=== PATIENT | female | born 1940 | race Caucasian/White ===

== ENCOUNTER 2017-12-23 08:54 | Outpatient (CLI) | payer MEDICARE, BC ==
[2017-12-23] MEDS ORDERED: Iopamidol 370 76% 100 ML VIAL ONE (12:56)
--- NOTE | 2017-12-23 13:16 | CT ---
CT OF ABDOMEN AND PELVIS PERFORMED WITH AND WITHOUT CONTRAST ENHANCEMENT: Date: 12/23/17 HISTORY: Colon cancer with colon resection. Being evaluated for microhematuria. COMPARISON: PET scan study of 01/03/12. FINDINGS: The lung bases are clear of any infiltrative process. The liver and spleen are normal in size and appearance. No evidence of any mass. Pancreas region and gallbladder appear unremarkable. Right and left adrenal glands are normal. Left kidney is normal in appearance. There has been develop ment of marked right-sided hydronephrosis. There is cortical thinning, particularly the anterior angelica ex of the right kidney associated with this, with large renal calculi, one within the renal pelvis me asuring in the 10-11 mm range and a second area within the mid pole of the right kidney which measure s approximately 12.0 mm in diameter. There is question of a filling defect associated with the dilate d konstantin of the mid pole calculus. I suspect that this is just related to incomplete mixing of the con trast with unopacified urine causing this appearance, less likely a mass, although the possibility is not totally excluded. The ureter itself is nondilated. There is no significant periaortic or mesente yanelis adenopathy. CT of pelvis was performed with and without contrast enhancement. No evidence of any significant lee ann opathy, mass, or free fluid. IMPRESSION: 1. Two large right renal calculi. There is also marked right-sided hydronephrosis present, which is probably related to the calculus located at the renal pelvis. The mid pole konstantin associated with the other large calculus shows almost a filling defect type appearance on the more delayed images. I thin k this is probably just related to uneven mixing of the contrast in urine due to the marked dilatatio n of the collecting system, although a mass is not definitely excluded. This is best appreciated on c oronal image 71. 2. Right hemicolectomy change. 3. Small hiatal hernia. POS: [facility]
== END 2017-12-23 08:55 | disposition home or self-care (01) ==
LOC: CT 08:54
PROVIDERS: ATTEND Urology
DX: N20.0 Calculus of kidney (principal); N13.39 Other hydronephrosis; K44.9 Diaphragmatic hernia without obstruction or gangrene; Z90.49 Acquired absence of other specified parts of digestive tract
CPT/HCPCS: 74178; 82565

== ENCOUNTER 2018-01-07 03:33 | Inpatient (IN) | payer MEDICARE, BC ==
[2018-01-07] MEDS ORDERED: Morphine 10 MG/ML VIAL ONE (04:15)
[2018-01-07 04:16] LABS: #Basophils 0.1 thou/uL (0.0-0.2); #Eosinphils 0.2 thou/uL (0.0-0.7); #Lymphocytes 2.4 thou/uL (1.20-3.40); #Monocytes 1.2 thou/uL (0.11-0.59); #Neutrophils 8.9 thou/uL (1.40-6.50); %Basophils 0.5 % (0.0-1.0); %Eosinophils 1.6 % (0.0-10.0); %Lymphocytes 18.7 % (21.0-51.0); %Neutrophils 70.2 % (42.0-75.0); Hemoglobin 10.5 g/dL (12.0-16.0); Mean Corpuscular HGB CONC 34.6 g/dL (32.0-36.0); Mean Corpuscular Hemoglobin 34.8 pg (27.0-31.0); Mean Platelet Volume 6.6 fL (7.4-10.4); Platelet Count 203 thou/uL (130-400); RBC Distribution Width 11.6 % (11.5-14.5); Red Blood Cell (RBC) Count 3.02 mill/uL (4.20-5.40); White Blood Cell (WBC) Count 12.7 thou/uL (4.8-10.8)
[2018-01-07 04:26] LABS: ALT (SGPT) 14 U/L (8-55); AST (SGOT) 14 U/L (5-34); Albumin 3.8 g/dL (3.4-4.8); Alkaline Phosphatase 53 U/L (40-150); Anion Gap 14 mmol/L (10-20); BUN (Urea Nitrogen) 21 mg/dL (9.8-20.1); Bilirubin, Total 0.4 mg/dL (0.2-1.2); Calc. Creatinine Clearance 0 mL/min (70-130); Calcium 9.8 mg/dL (7.8-10.44); Carbon Dioxide 25 mmol/L (23-31); Chloride 104 mmol/L (98-107); Estimated GFR-MDRD 43; Globulin 2.8 g/dL (2.4-3.5); Glucose 171 mg/dL (83-110); Lipase 49 U/L (8-78); Potassium 4.7 mmol/L (3.5-5.1); Protein, Total 6.6 g/dL (6.0-8.3); Sodium 138 mmol/L (136-145)
[2018-01-07 04:41] LABS: Bilirubin Negative (Negative); Blood, Urine Large (Negative); Clarity CLEAR (Clear); Glucose, Urine (Dipstick) Negative (Negative); Leukocyte Moderate (Negative); Nitrite Negative (Negative); Protein, Urine (Dipstick) 100 mg/dL (Neg-Trace); Specific Gravity, Urine 1.007 (1.002-1.036); Urobilinogen 0.2 mg/dL (0.2-1.0)
[2018-01-07 04:44] LABS: Bacteria/HPF None Seen HPF (None Seen); Hyaline Casts/LPF 0-3 HYALINE CAST LPF (0-3 Hyaline); Pathc Cast-AUWi Flag 0.58 (0-2.49); Squamous Epithelial None Seen HPF (0-3); WBC/HPF 21-50 HPF (0-3)
[2018-01-07] MEDS ORDERED: MEROPENEM 1 GM/50 ML 1 GM in Premix Bag 1 BAG IVPB SCH ×2 (05:15→14:00)
[2018-01-07] MEDS ORDERED: HYDROcodone/Acetaminophen 5/325 mg Tablet PO PRN ×2 (07:17→07:18)
[2018-01-07] MEDS ORDERED: Acetaminophen 325 MG TAB PO PRN (07:18)
[2018-01-07] MEDS ORDERED: Ondansetron ODT 4 MG TAB PO PRN (07:18)
[2018-01-07] MEDS ORDERED: Ondansetron HCl/PF 4 MG/2 ML Vial IVP PRN (07:18)
[2018-01-07] MEDS ORDERED: Morphine 4 MG/ML VIAL IV PRN (07:20)
[2018-01-07 07:25] VITALS: BMI 21.5
[2018-01-07] MEDS ORDERED: Sodium Chloride 0.9% 1,000 ML IV SCH (07:30)
[2018-01-07] MEDS ORDERED: Prevnar 13-Val Conj/PF 0.5 ML SYRINGE IM ONE (07:45)
[2018-01-07] MEDS ORDERED: cefTRIAXone\\ROCEPHIN 2 GM in Sodium Chloride 0.9% 100 ML IVPB SCH (08:00)
--- NOTE | 2018-01-07 09:53 | CT ---
PRELIMINARY REPORT/[facility]/EMERGENTY AFTER-HOURS PROCEDURE CT Abdomen and Pelvis Without Intravenous Contrast CLINICAL HISTORY: 77 years old, female; Abdominal pain; right flank pain. had CT done recently and found kidney stone. States pain from stone too intense tonight. Pt reports "kidney stone blocking causing kidney to . " TECHNIQUE: Axial computed tomography images of the abdomen and pelvis without intravenous contrast. Coronal refo rmatted images were created and reviewed. COMPARISON: No relevant prior studies available. FINDINGS: Lung bases: Unremarkable. No mass. No consolidation. Heart: Coronary artery calcification. ABDOMEN: Liver: Unremarkable. Gallbladder and bile ducts: Unremarkable. No calcified stones. No ductal dilation. Pancreas: Unremarkable. No ductal dilation. Spleen: Unremarkable. No splenomegaly. Adrenals: Unremarkable. No mass. Kidneys and ureters: Right hydronephrosis with a 9 x 10 x 8 mm calcified stone at the right UPJ. Bila teral calcified renal stones, right greater than left. Stomach and bowel: Prior hemicolectomy with ileocolic anastomosis in the mid transverse colon region. No generalized ileus or obstruction. PELVIS: Appendix: See above. Bladder: Unremarkable. No stones. Reproductive: Atrophic uterus and ovaries. ABDOMEN and PELVIS: Intraperitoneal space: Unremarkable. No free air. No significant fluid collection. Bones/joints: Prior T12 and L5 vertebroplasty. Spinal degenerative changes. No acute fracture. No dis location. Soft tissues: Unremarkable. Vasculature: Unremarkable. No abdominal aortic aneurysm. Lymph nodes: Unremarkable. No enlarged lymph nodes. IMPRESSION: 1. Right hydronephrosis with a 9 x 10 x 8 mm calcified stone at the right UPJ. 2. Bilateral calcified renal stones, right greater than left. Thank you for allowing us to participate in the care of your patient. Dictated and Authenticated by: Hola Aleman MD 01/07/2018 5:19 AM Central Time ([place] & [place]) FINAL REPORT CT ABDOMEN AND PELVIS NONCONTRAST: DATE: 01/07/18. TIME: Performed on an emergency basis at 0408 hours. HISTORY: Right flank pain. COMPARISON: 12/23/17. FINDINGS: Agree with the preliminary report by Dr. Aleman from [facility]. Calculus at the right rober l pelvis now measures up to 1.0 cm. Additional nonobstructing right renal calculi are similar in johanna earance to the prior exams. Lack of contrast limits evaluation for other abnormalities. Other chron ic-type findings are stable. POS: [facility]
--- NOTE | 2018-01-07 10:11 | HP ---
DATE OF SERVICE: 01/07/2018 ADMISSION DIAGNOSES: Concern for urinary tract infection and right flank pain with known stone disease. HISTORY OF PRESENT ILLNESS: The patient is a 77-year-old female who was recently seen in my office after she was having microhematuria and a workup revealed a large obstructing stone that had clearly been there chronically with loss of significant parenchyma on the right. Cystoscopy had been negative. At that time, we reviewed given she was asymptomatic and had no pain or gross hematuria, and I would not recommend treatment as the amount of parenchymal on that side was likely not worth intervention to save. We did review reasons need for intervention including infection, gross hematuria, and persistent pain at that time. More recently, she had right-sided pain and started shaking to call 911 and was taken to the ER where her pain was not bad enough to require at least except morphine, which she was offered. The on-call urologist had not evaluated her yet and did not feel comfortable letting her go, so admitted her. Since she was my patient, I saw her. She had no gross hematuria, no dysuria or concern for bladder infection, but she did feel like reviewed with the same symptoms a year ago when she got very sick with a urinary tract infection, which is why she did not stay at home as that required a week long hospital stay in the past. She had no fever, chills, nausea or vomiting. PAST MEDICAL HISTORY: Significant for high cholesterol, diabetes since , osteoporosis, anemia, depression, anxiety, chronic pain, glaucoma, hypothyroid, colon cancer undergoing resection and chemotherapy in 2010. PAST SURGICAL HISTORY: Includes tonsils and colectomy in 2010 and extended colectomy in September 2011, MediPort placement in 2011, which has been removed. ALLERGIES: SULFA, causes hives. LEVAQUIN, makes her sick. SOCIAL HISTORY: Smoked for 35 years a pack a day, but quit around 1998. She does not use drugs or drink alcohol. She is and lives at home. FAMILY HISTORY: Father at 67 of heart disease. Mother at 87 of heart disease. MEDICATIONS: Include Onglyza 5 mg, Synthroid 20 mcg, metformin 500 two at night , Crestor 10 mg, vitamin D3, Prozac 10 mg. REVIEW OF SYSTEMS: She had a colonoscopy in 2018, which revealed polyps. She gets this every 3 years. Endoscopy at the same time showed a hiatal hernia. Her mammogram last year was normal. Pap smear 2 years ago was normal. She denies any shortness of breath, chest pain, cough, occasionally she has bouts of diarrhea. She is not constipated. She had a loose and a normal bowel movement yesterday. She had a recent rash that they feel is a delayed reaction from contrast for a recent CT scan that she had and over the weekend, she saw someone and received a steroid injection as well as steroid cream, this is getting better. PHYSICAL EXAMINATION: GENERAL: She is comfortable in the bed. VITAL SIGNS: Temperature is 99.8, heart rate 85, blood pressure 161/79, satting 95% on room air. She is alert and oriented. NECK: She has no JVD. HEENT: She has no scleral icterus. She has no flushing or color of the skin, although there is the rash, lesions that are healing noted especially on the right hand. CARDIOVASCULAR: Regular rate and rhythm with no murmurs, gallops or rubs. LUNGS: Clear to auscultation bilaterally. ABDOMEN: Soft, nondistended, nontender. There is mild right CVA tenderness, but none on the left. EXTREMITIES: No lower extremity edema. LABORATORY DATA: Reveal a white count of 12.7, anemia which is stable at 10.5 and 30.5, normal platelets at 203. Creatinine 1.22, which is actually good for her as her baseline is 1.3-1.4. Urinalysis revealed 21-50 wbc's, 4-6 rbc's, no bacteria, no squamous cells, and [address] scan without contrast was reviewed personally and very similar to the one from 12/23/2017 that had without and with contrast; however, we only changed that there might be mild stranding on the right kidney in comparison to the prior, but she still has the unchanged 1.2 x 1 x 1 right UPJ stone with chronic hydro and decreased parenchyma. She also has some stone debris in the mid kidney on the right and a elyse on the left with a full bladder. We had a long discussion on stent placement and intervention with her and daughter present. We relayed in great detail to the pros and cons of doing nothing other than giving antibiotics for a 2-week course for presumed pyelonephritis as well as intervening with a stent, which commits her to definitive stone therapy versus sending out on IV antibiotics and delaying therapy as there is no definitive acute indication for a stent right now. She weighed the pros and cons of these and ultimately decided to have a stent placed today. We reviewed the risks and benefits and how there is a small chance that I would not be able to place a stent and then we would have to discuss whether she would want a percutaneous nephrostomy tube thereafter. All questions were answered and I consented her for the procedure. We will anticipate this sooner than later. LA NENA
[2018-01-07] MEDS ORDERED: Iothalamate Meglumine 60% 50 ML VIAL FS ONE (11:37)
[2018-01-07] MEDS ORDERED: Succinylcholine Chloride 20 MG/ML 10 ml SYRINGE FS ONE ×2 (11:50→14:39)
[2018-01-07] MEDS ORDERED: Fentanyl 100 MCG/2 ML VIAL ONE ×2 (11:51)
[2018-01-07] MEDS ORDERED: Ioversol 68 % 50 ML VIAL ONE (12:02)
[2018-01-07 12:45] VITALS: TEMP 98.9
--- NOTE | 2018-01-07 13:07 | RAD ---
RIGHT RETROGRADE IVP: HISTORY: Stent placement. FINDINGS: Two fluoroscopic intraoperative images from a right retrograde pyelogram demonstrate removal of a rig ht proximal ureteric calculus at LII level and placement of a right ureteral stent. There are calcul i in the projection of the right kidney. There are postop changes of vertebroplasty at T12 and L5 le vels. POS: [facility]
[2018-01-07 13:08] LABS: Bilirubin Negative (Negative); Blood, Urine Large (Negative); Glucose, Urine (Dipstick) Negative (Negative); Leukocyte Large (Negative); Nitrite Negative (Negative); Protein, Urine (Dipstick) 100 mg/dL (Neg-Trace); Urobilinogen 0.2 mg/dL (0.2-1.0)
[2018-01-07 13:22] LABS: Clarity Hazy (Clear); RBC/HPF GREATER THAN 50-TNTC HPF (0-3); Squamous Epithelial 0-3 HPF (0-3); WBC/HPF 21-50 HPF (0-3)
[2018-01-07 13:23] LABS: Bacteria/HPF Rare-Few HPF (None Seen); Hyaline Casts/LPF NONE SEEN LPF (0-3 Hyaline)
--- NOTE | 2018-01-07 14:14 | OP ---
DATE OF PROCEDURE: 01/07/2018 PREOPERATIVE DIAGNOSES: Right obstructing ureteropelvic junction stone with concern for infection. POSTOPERATIVE DIAGNOSES: Right obstructing ureteropelvic junction stone with concern for infection. PROCEDURES PERFORMED: Cystoscopy, right retrograde pyelogram, insertion of right ureteral stent 6 x 28 JJ. COMPLICATIONS: No complications. DRAINS REMAININ x 28 double J. SPECIMENS: Urine from the right renal pelvis. ESTIMATED BLOOD LOSS: No blood loss. INDICATIONS: The patient is a 77-year-old female who is followed in the office for microhematuria and noted to have a large obstructing stone on the right that was there for years prior. Given the parenchymal loss on this side and we opted to monitor only. However, overnight, she had right-sided pain, was shaking and was concerned that this was how the prior significant urinary tract infection occurred in the past, so came to the emergency room and was admitted. We discussed the pros and cons of intervention and proceeding with a stent. PROCEDURE IN DETAIL: The patient was brought into the room by Anesthesia and laid on the table in the supine position. After receiving general anesthetic, legs placed in lithotomy position and perineum were prepped and draped in sterile fashion. Using a 22-Uzbek cystoscope and 30-degree lens urethra was traversed and the bladder inspected. No lesions were noted. The right ureteral orifice was intubated with a wire and then the Pollack catheter which was advanced up to the level of the stone. It looked initially like it might have passed it, but this was tortuosity of the ureter so the wire did not pass beyond it and I had to angle the Pollack catheter such that the wire would attempt to reverse itself around the stone. We used a Glidewire, which aided in passing it, then I could not get the Pollack catheter advanced over the wire well enough given the tortuosity. So then I got a stiff wire and placed this in which then straightened out the ureter and allowed the Pollack catheter to get into the renal pelvis beyond the stone. Hydronephrotic drip was noted and 6 mL of slightly cloudy urine was extracted and sent for specimen. Knowing the patient's size and height I attempted to go with a smaller stent and originally tried to place a 26 x 6 double-J, but the proximal coil would only go right next to the stone. I was concerned that it would migrate down and the stone would still be obstructing. At that point, I removed the 26cm stent and had to use a 28cm to allow the it to get beyond the stone enough to coil into place adequately. Once this was performed, there was still significant angulation, but the proximal coil was in the renal pelvis above the level of the stone. There was a good coil visualized in the bladder with effuse noted from it. So at this point, the scope was broken apart, bladder drained and removed in its entirety. The patient tolerated the procedure well and was then awakened and transferred to PACU in stable condition. LA NENA
[2018-01-07] MEDS ORDERED: Esmolol 100 MG/10 ML VIAL ONE (14:39)
[2018-01-07] MEDS ORDERED: Lidocaine 1% PF 5 ML VIAL ONE (14:39)
[2018-01-07] MEDS ORDERED: Ondansetron HCl/PF 4 MG/2 ML Vial ONE (14:39)
[2018-01-07] MEDS ORDERED: PROPOFOL 200 MG/20 ML VIAL ONE (14:39)
[2018-01-07] MEDS ORDERED: ePHEDrine/0.9% NaCl/PF SYRINGE 50 mg/10 ml ONE (14:39)
[2018-01-07 15:53] VITALS: BP 116/62
[2018-01-07] MEDS ORDERED: Insulin Regular 300 UNITS/3 ML VIAL SC SCH ×2 (16:30→18:00)
[2018-01-07] MEDS ORDERED: Dextrose 50% Abboject 50 ML SYRINGE IVP PRN (16:37)
[2018-01-07] MEDS ORDERED: Dextrose 5% in Water 1,000 ML IV PRN (16:37)
[2018-01-07] MEDS ORDERED: metFORMIN 500 MG TAB PO SCH (16:45)
--- NOTE | 2018-01-08 10:46 | DIS ---
ADMISSION DIAGNOSES: Renal colic, obstructing right ureteropelvic junction stone, concern for infect ion. DISCHARGE DIAGNOSES: Renal colic, obstructing right ureteropelvic junction stone, concern for infect ion. Status post right ureteral stent. Please see the H&P for full details. There was concern for possible infection and pain with a known chronically obstructing stone, so she went for an urgent stent. This was placed and she was discharg ed the same day on antibiotics. She will follow up in the office to discuss definitive stone management.
--- NOTE | 2018-01-08 12:30 | PQF ---
HANSELREBEKAH JEREMY MAYES [id number] CLINICAL DOCUMENTATION CLARIFICATION FORM: POST DISCHARGE DATE: 01/08/2018 ATTN: Dr. Mayes Please exercise your independent, professional judgment in responding to the clarification form. Clinical indicators are provided on the bottom of this form for your review Please check appropriate box(s) to clarify if the following diagnosis has been ruled in or ruled out: UTI/Pyelonephritis [ ] Ruled in diagnosis [ X] Continue to treat [ X ] UTI (please specify organism) [ ] Resolved [X ] Pyelonephritis (please specify organism) [ ] Acute [ ] Chronic [ X] Other (please specify) [ ] Ruled out diagnosis [ ] Cannot rule out diagnosis [ ] Other diagnosis (please specify) [ ] Unable to determine In addition, please specify: Present on Admission (POA): [ X] Yes [ ] No [ ] Unable to determine For continuity of documentation, please document condition throughout progress notes and discharge summary. Thank You. CLINICAL INDICATORS - SIGNS / SYMPTOMS / LABS Per H&P: We relayed in great detail to the pros and cons of doing nothing other than giving antibiotics for a 2 week course for presumed pyelonephritis. Per operative note: Right obstructing ureteropelvic junction stone with concern for infection. Per microbiology urine: Right kidney aspirate: Staphylococcus species. Urine straight catheter: Enterococcus species. RISK FACTORS Per operative report: Right obstructing ureteropelvic junction stone. TREATMENTS (per medications) IV Meropenem. IV Rocephin. (This form is maintained as a part of the permanent medical record) 2014 [employer] [place]. All Rights Reserved Belle [email or web address] [phone] MTDD
[2018-01-08] MEDS ORDERED: metFORMIN 500 MG TAB PO SCH (21:00)
--- NOTE | 2018-01-11 13:15 | TCOM ---
Admission Diagnosis: renal colic, obstructing right ureteral stone Discharge Diagnosis: same, s/p stent This is a 77-year-old female who was admitted through the ER with acute pain and concern for infection with a known chronically obstructing right proximal ureteral stone. She underwent a right ureteral stent and was discharged on antibiotics. She was admitted, had the procedure and discharged on 01/07/2018. She will follow up in the office for definitive stone therapy discussions further. LA NENA
== END 2018-01-07 18:31 | disposition home or self-care (01) | DRG 690 ==
LOC: ERS 03:33 → T4-B 06:52
PROVIDERS: ADMIT Urology; ATTEND Urology
PROC: 0T768DZ Dilation of Right Ureter with Intraluminal Device, Via Natural or Artificial Opening Endoscopic (ICD-10-PCS; principal; 2018-01-07)
PROC: BT1D1ZZ Fluoroscopy of Right Kidney, Ureter and Bladder using Low Osmolar Contrast (ICD-10-PCS; 2018-01-07)
DX: N13.6 Pyonephrosis (principal); E78.00 Pure hypercholesterolemia, unspecified; E11.9 Type 2 diabetes mellitus without complications; F32.9 Major depressive disorder, single episode, unspecified; F41.9 Anxiety disorder, unspecified; G89.29 Other chronic pain; E03.9 Hypothyroidism, unspecified; M81.0 Age-related osteoporosis without current pathological fracture; Z85.038 Personal history of other malignant neoplasm of large intestine; Z92.21 Personal history of antineoplastic chemotherapy; Z88.1 Allergy status to other antibiotic agents; Z88.2 Allergy status to sulfonamides; Z79.84 Long term (current) use of oral hypoglycemic drugs; Z79.899 Other long term (current) drug therapy
CPT/HCPCS: 36415; 36416; 51701; 74176; 74420; 80053; 81003; 81015; 83690; 85025; 87040; 87070; 87077; 87086; 87186; 87205; 96361; 96365; A4353; C1758; C1769; J0696; J2001; J2185; J2270; J2405; J2704; J3010; J7050; Q9961; Q9967

== ENCOUNTER 2018-01-11 12:55 | Outpatient (CLI) | payer MEDICARE, BC ==
--- NOTE | 2018-01-11 14:49 | RAD ---
CHEST PA AND LATERAL: History: 77-year-old female for pre-operative evaluation. Comparison: 05-20-11 FINDINGS: Bilateral apical pleural thickening. Heart size is normal. Atherosclerosis of the aorta with ectasia. Status post vertebroplasty changes of one of the lower thoracic vertebral bodies. No confluent pneum onia, overt edema, or pleural effusion. IMPRESSION: No acute intrathoracic disease. Biapical pleural thickening. Atherosclerosis of the aorta. Status pos t vertebroplasty. Right ureteral stent partially visualized. POS: [facility]
== END 2018-01-11 12:56 | disposition home or self-care (01) ==
LOC: LABBT 12:55
PROVIDERS: ATTEND Urology
DX: Z01.818 Encounter for other preprocedural examination (principal); N20.2 Calculus of kidney with calculus of ureter; J92.9 Pleural plaque without asbestos; I70.0 Atherosclerosis of aorta; Z98.890 Other specified postprocedural states
CPT/HCPCS: 71046; 81001; 87086; 93005; 93010

== ENCOUNTER 2018-01-19 08:07 | Day surgery (SDC) | payer MEDICARE, BC ==
[2018-01-11 13:07] VITALS: BMI 21.4
[2018-01-19] MEDS ORDERED: Meropenem 500 MG in Sodium Chloride 0.9% 100 ML IVPB SCH (08:45)
[2018-01-19] MEDS ORDERED: Iothalamate Meglumine 60% 50 ML VIAL FS ONE (09:12)
[2018-01-19] MEDS ORDERED: Fentanyl 100 MCG/2 ML VIAL ONE ×2 (09:19→12:40)
[2018-01-19] MEDS ORDERED: Meperidine HCl/PF 25 MG/ML VIAL ONE (09:19)
[2018-01-19] MEDS ORDERED: Furosemide 20 MG/2 ML VIAL ONE (11:16)
[2018-01-19] MEDS ORDERED: ePHEDrine/0.9% NaCl/PF SYRINGE 50 mg/10 ml ONE (11:33)
[2018-01-19] MEDS ORDERED: PROPOFOL 200 MG/20 ML VIAL ONE (11:33)
[2018-01-19] MEDS ORDERED: Ondansetron HCl/PF 4 MG/2 ML Vial ONE ×2 (11:33→12:42)
[2018-01-19] MEDS ORDERED: Lidocaine 1% PF 5 ML VIAL ONE (11:33)
[2018-01-19] MEDS ORDERED: PHENYLEPHRINE-NS 100 MCG/ML 10 ML SYRINGE ONE (11:33)
--- NOTE | 2018-01-19 11:48 | OP ---
DATE OF SERVICE: 01/19/2018 PREOPERATIVE DIAGNOSIS: Right ureteropelvic junction and right renal stones POSTOPERATIVE DIAGNOSIS: Right renal stone. PROCEDURE: Cystoscopy, right ureteroscopy, right pyeloscopy, right holmium laser lithotripsy, stent exchange leaving a 7 x 26 with a string and extracorporeal shockwave lithotripsy. SURGEON: Nayely Mayes M.D. ANESTHESIA: General with laryngeal mask airway. FINDINGS: Significant narrowing at the UPJ, but the stone was actually in the renal pelvis. Attempt s at lithotripsy were made difficult by the stones mobility and visualization. After attempting this , I felt it was safer to proceed with shock wave therapy. I was also able to note there were debris stones and a smaller stone in the lower pole via pyeloscopy. SPECIMENS: None. DRAINS REMAININ x 26 double-J with a string. COMPLICATIONS: None. BLOOD LOSS: None. INDICATIONS FOR PROCEDURE: The patient is a 77-year-old female who I saw in the office for hematuria noted to have an obstructing UPJ stone with chronic dilation and loss of parenchyma on the right, wh o had been there for quite some time and we were opting to monitor; however, the patient had further pain and concern for infection and underwent an urgent stent, so we opted for definitive stone manage ment. PROCEDURE IN DETAIL: The patient was brought into the room by Anesthesia, laid on the table in supin e position. After obtaining general anesthetic her legs placed in lithotomy position with the right leg lowered and left leg elevated and she was prepped and draped in sterile fashion. Using a 22-Fren ch cystoscope, the urethra was traversed and the stent existing was grasped and brought out through t he urethral meatus. A wire was placed through this and that stent was removed and then the rigid ure teroscope was used to follow the wire up to the proximal ureter, but I was unable to pass a tortuous curve safely with the rigid, so I switched to a flexible. I was able to follow the wire with the fle xible ureteroscope all the way to the UPJ and into the renal pelvis with narrowing at the UPJ it was difficult to traverse, but once in the renal pelvis the stone was easily noted and I further examined and found more stone debris and a smaller stone in the lower pole. At this point, I went back to e renal pelvic stone and with holmium laser lithotripsy attempted to break it up. This was made diff icult by the stones mobility within the renal pelvis and when turning off the water to keep it still, it was difficult to see from the cloudy nature, so having not made significant progress at this poin t, I opted to stop holmium laser lithotripsy and proceed with extracorporal shockwave lithotripsy. Leading a wire through the flexible ureteroscope, I removed it and then was concerned that it had jadyn pped below the UPJ again, so I fed the flexible scope back up and ensured that the wire was indeed in the renal pelvis, and not in the upper calices. Before removing the flexible scope entirely and the n back feeding the cystoscope over and leaving a 7 x 26 double-J over a wire after measuring with the Pollack catheter, a good coil was visualized in the renal pelvis via fluoroscopy and a good coil was visualized in the bladder via cystoscopy with a string so the scope was broken apart, bladder draine d and removed carefully leaving the string intact and secured to the patient's mons pubis. At this p oint, she was transferred to the ESWL suite. She was laid supine and positioned such that the lithotripter could identify the stone in multiple pl anes. Then, a total of 2500 shocks at a maximum rate of 70 per minute, maximum power of 4 out of 6 w ere delivered with good fragmentation noted. The patient tolerated the procedure well and was then a wakened and transferred to PACU in stable condition.
[2018-01-19] MEDS ORDERED: Promethazine HCl 25 MG/ML VIAL ONE (12:40)
== END 2018-01-19 14:45 | disposition home or self-care (01) ==
LOC: SDC 08:07
PROVIDERS: ATTEND Urology
PROC: 0T768DZ Dilation of Right Ureter with Intraluminal Device, Via Natural or Artificial Opening Endoscopic (ICD-10-PCS; principal; 2018-01-19)
PROC: 0TF3XZZ Fragmentation in Right Kidney Pelvis, External Approach (ICD-10-PCS; 2018-01-19)
DX: N20.0 Calculus of kidney (principal); Z88.2 Allergy status to sulfonamides; Z88.8 Allergy status to other drugs, medicaments and biological substances; Z91.041 Radiographic dye allergy status; Z79.2 Long term (current) use of antibiotics; Z79.82 Long term (current) use of aspirin; Z79.899 Other long term (current) drug therapy; Z79.84 Long term (current) use of oral hypoglycemic drugs
CPT/HCPCS: 36416; 74018; 76001; 96374; C1758; J1940; J2001; J2175; J2185; J2405; J2550; J2704; J3010; J7050; Q9961

== ENCOUNTER 2018-02-15 10:47 | Outpatient (CLI) | payer MEDICARE, BC ==
--- NOTE | 2018-02-15 13:25 | RAD ---
ABDOMEN ONE VIEW: History: Renal stones. Comparison: 01-19-18 FINDINGS: Visualized bowel gas pattern is nonspecific. Right ureteral stent no longer visible. Renal outlines o bscured by bowel content. Phleboliths over the pelvis are stable. Right renal calculi not reliably demonstrated. Osseous structures are demineralized. Multilevel vertebroplasty. IMPRESSION: Interval removal of right ureteral stent. Urinary tract calculi not reliably visible. POS: [facility]
== END 2018-02-15 10:48 | disposition home or self-care (01) ==
LOC: RAD 10:47
PROVIDERS: ATTEND Urology
DX: N20.0 Calculus of kidney (principal)
CPT/HCPCS: 36415; 74018; 80048; 81001

== ENCOUNTER 2018-04-05 09:35 | Outpatient (CLI) | payer MEDICARE, BC | END 2018-04-05 09:36 | disposition home or self-care (01) | LOC: BICMAMMO 09:35 | PROVIDERS: ATTEND Obstetrics & Gynecology | DX: Z12.31 Encounter for screening mammogram for malignant neoplasm of breast (principal); Z80.3 Family history of malignant neoplasm of breast; R92.1 Mammographic calcification found on diagnostic imaging of breast | CPT/HCPCS: 77063; 77067 ==

== ENCOUNTER 2019-04-06 10:41 | Outpatient (CLI) | payer MEDICARE, BC ==
--- NOTE | 2019-04-06 12:49 | BD ---
Exam: DEXA Bone Density 04/06/19 HISTORY: Postmenopausal screening for osteoporosis. Right hip: BMD (g/cm2) T-SCORE Z-SCORE Neck: 0.530 -2.9 -0.6 Total: 0.613 -2.7 -0.7 Left hip: Neck: 0.516 -3.0 -0.8 Total: 0.603 -2.8 -0.8 Impression: Osteoporosis. POS: [facility]
--- NOTE | 2019-04-06 15:56 | MMO ---
Bilateral MAMMO Bilat Screen [facility]. CLINICAL HISTORY: Patient is 78 years old and is seen for screening. The patient has the following family history of breast cancer: sister, malignant (generic). The patient has no personal history of cancer. The patient has a history of right Ultrasound Guided Core Biopsy in May, - benign. VIEWS: The views performed were: bilateral craniocaudal with tomosynthesis and bilateral mediolateral oblique with tomosynthesis. FILMS COMPARED: The present examination has been compared to prior imaging studies performed at [facility] on 03/30/2015, 04/01/2016, 04/03/2017 and 04/05/2018. This study has been interpreted with the assistance of computer-aided detection. MAMMOGRAM FINDINGS: There are scattered fibroglandular densities. Benign calcifications are noted bilaterally. Right biopsy clip. There are no suspicious masses, suspicious calcifications, or new areas of architectural distortion. IMPRESSION: THERE IS NO MAMMOGRAPHIC EVIDENCE OF MALIGNANCY. A ROUTINE FOLLOW-UP MAMMOGRAM IN 1 YEAR IS RECOMMENDED. THE RESULTS OF THIS EXAM WERE SENT TO THE PATIENT. ACR BI-RADS Category 2 - Benign finding MAMMOGRAPHY NOTE: 1. A negative mammogram report should not delay a biopsy if a dominant of clinically suspicious mass is present. 2. Approximately 10% to 15% of breast cancers are not detected by mammography. 3. Adenosis and dense breasts may obscure an underlying neoplasm. Reported by: JABARI MAKI MD Electonically Signed: [id number]
== END 2019-04-06 10:42 | disposition home or self-care (01) ==
LOC: BICMAMMO 10:41
PROVIDERS: ATTEND Obstetrics & Gynecology
DX: Z12.31 Encounter for screening mammogram for malignant neoplasm of breast (principal); Z13.820 Encounter for screening for osteoporosis; N95.9 Unspecified menopausal and perimenopausal disorder; M81.0 Age-related osteoporosis without current pathological fracture; Z80.3 Family history of malignant neoplasm of breast
CPT/HCPCS: 77063; 77067; 77080

== ENCOUNTER 2019-05-24 12:56 | Outpatient (CLI) | payer MEDICARE, BC ==
--- NOTE | 2019-05-24 13:42 | CT ---
CT Stone Protocol 05/24/2019 12:00 AM HISTORY: Calculus of kidney. COMPARISON: 01/07/2018 Technique: Multiple contiguous axial CT images are obtained through the abdomen and pelvis without IV contrast. Coronal reformats are provided. FINDINGS: This examination is limited for the evaluation of solid organs and vascular structures due to the lac k of intravenous contrast. Lower Chest: Lung bases are clear. Small hiatal hernia is again present. Abdomen: Liver: Grossly normal nonenhanced CT appearance. Gallbladder: Decompressed. Pancreas: Grossly normal nonenhanced CT appearance. Spleen: Grossly normal nonenhanced CT appearance. Adrenals: Grossly normal nonenhanced CT appearance. Kidneys: Previously noted large inferior pole right renal calculus as well as right renal pelvis calc ulus are no longer visualized likely due to interval treatment. The severe right hydronephrosis noted on the prior study has also resolved. There is a nonobstructing inferior pole right renal calcu mynor measuring 6 mm. There is minimal right hydronephrosis with a 5 mm x 2 mm calculus seen in the proximal right ureter. A nonobstructing 4 mm calculus is seen in the midportion left kidney. Renal co rtical scarring is seen involving the right kidney predominantly involving the inferior pole. Ureters: Proximal right ureteral calculus is present. No left ureteral calculus is identified. Pelvis: Urinary bladder: Mostly decompressed but otherwise grossly normal in appearance. Reproductive Organs: No pelvic masses. Lymph Nodes: No enlarged lymph nodes. No longer seen. Bowel: Postsurgical changes related to right hemicolectomy are present. A [id number] amount of retained fecal material is seen throughout the colon. Loops of small bowel are normal in caliber. Appendix: Surgically removed secondary to right hemicolectomy. Peritoneum: No free fluid, free air, or fluid collection. Retroperitoneum: within normal limits. Vessels: Vascular calcifications are seen in the abdominal aorta and iliac arteries and vascular loca tions partially imaged involving the coronary arteries and lower thoracic aorta.. Abdominal Wall: within normal limits. Bones: Vertebroplasty changes are seen involving a wedge-shaped compression fracture of the T12 verte bral body as well as involving a mild wedge-shaped compression fracture of the L5 vertebral body. Findings were also seen on prior exam in 2018. There is exaggerated kyphosis of the spine at the leve l of the thoracolumbar junction. Degenerative changes are seen in the spine. IMPRESSION: 1. Partially obstructing right proximal ureteral calculus measuring 5 mm. 2. Nonobstructing bilateral renal calculi. Previously noted severe right hydronephrosis and larger ri ght renal calculi on prior study are no longer seen. 3. Postsurgical changes related to right hemicolectomy. 4. Vascular calcifications.
== END 2019-05-24 12:57 | disposition home or self-care (01) ==
LOC: BICCT 12:56
PROVIDERS: ATTEND Urology
DX: N20.2 Calculus of kidney with calculus of ureter (principal)
CPT/HCPCS: 74176

== ENCOUNTER 2019-06-08 09:19 | Outpatient (CLI) | payer MEDICARE, BC ==
[2019-06-08 12:10] LABS: Hemoglobin 11.3 g/dL (12.0-16.0); Mean Corpuscular HGB CONC 33.4 g/dL (32.0-36.0); Mean Corpuscular Hemoglobin 33.9 pg (27.0-31.0); Mean Platelet Volume 7.1 fL (7.4-10.4); Platelet Count 224 thou/uL (130-400); RBC Distribution Width 14.4 % (11.5-14.5); Red Blood Cell (RBC) Count 3.34 mill/uL (4.20-5.40); White Blood Cell (WBC) Count 7.6 thou/uL (4.8-10.8)
[2019-06-08 12:17] LABS: Anion Gap 11 mmol/L (10-20); BUN (Urea Nitrogen) 23 mg/dL (9.8-20.1); Calc. Creatinine Clearance 0 mL/min (70-130); Calcium 9.6 mg/dL (7.8-10.44); Carbon Dioxide 28 mmol/L (23-31); Chloride 104 mmol/L (98-107); Estimated GFR-MDRD 28; Glucose 216 mg/dL (83-110); Potassium 4.7 mmol/L (3.5-5.1); Sodium 138 mmol/L (136-145)
[2019-06-08 12:19] LABS: INR-International Normal Ratio 0.9; PTT 27.9 SEC (22.9-36.1); Prothrombin Time 12.6 SEC (12.0-14.7)
[2019-06-08 12:26] LABS: Bilirubin Negative (Negative); Blood, Urine Negative (Negative); Clarity Clear (Clear); Glucose, Urine (Dipstick) Normal (Negative); Leukocyte 25 Leu/uL (Negative); Nitrite Negative (Negative); Protein, Urine (Dipstick) Negative (Neg-Trace); Squamous Epithelial 0-3 HPF (0-3); Urobilinogen Normal mg/dL (Less than 2)
[2019-06-08 12:37] LABS: Bacteria/HPF None Seen HPF (None Seen); RBC/HPF 0-3 HPF (0-3)
--- NOTE | 2019-06-12 14:09 | EKG ---
Test Reason : Blood Pressure : / mmHG Vent. Rate : 063 BPM Atrial Rate : 063 BPM P-R Int : 190 ms QRS Dur : 084 ms QT Int : 430 ms P-R-T Axes : 073 066 063 degrees QTc Int : 440 ms Normal sinus rhythm Normal ECG When compared with ECG of 11-JAN-2018 14:01, No significant change was found Confirmed by RICK CARCAMO (2) on 06/12/2019 2:09:45 PM Referred By: MINDY Confirmed By:RICK CARCAMO
== END 2019-06-08 09:20 | disposition home or self-care (01) ==
LOC: LABBT 09:19
PROVIDERS: ATTEND Urology
DX: Z01.818 Encounter for other preprocedural examination (principal); N20.0 Calculus of kidney; N39.0 Urinary tract infection, site not specified; N39.46 Mixed incontinence
CPT/HCPCS: 80048; 81001; 85027; 85610; 85730; 87086; 93005; 93010

== ENCOUNTER 2019-06-08 10:17 | Outpatient (CLI) | payer MEDICARE, BC ==
--- NOTE | 2019-06-08 11:41 | CT ---
CT ABDOMEN AND PELVIS WITHOUT CONTRAST: HISTORY: Hydronephrosis. Calculus of kidney. COMPARISON: 05/24/2019 FINDINGS: Absence of oral and IV contrast reduces the sensitivity of the exam, particularly for evaluation of s olid organs involved. The 5 mm right proximal ureteric calculus at the L4 level is again seen with mild right-sided hydrone phrosis. Bilateral renal calculi are again seen. No calculi are seen in the left ureter or in the uri nary bladder. No left-sided hydroureteronephrosis is seen. No free air or free fluid is noted in the abdomen or pelvis. The remainder of the exam is stable. IMPRESSION: Stable examination since 05/24/2019 with a 5 mm, partially obstructing right proximal ureteric calcul us and nonobstructing bilateral renal calculi. POS: BALDO
== END 2019-06-08 10:18 | disposition home or self-care (01) ==
LOC: BICCT 10:17
PROVIDERS: ATTEND Urology
DX: N13.2 Hydronephrosis with renal and ureteral calculous obstruction (principal)
CPT/HCPCS: 74176; 80048; 81001; 85027; 85610; 85730; 87086; 93005

== ENCOUNTER 2019-06-10 08:21 | Day surgery (SDC) | payer MEDICARE, BC ==
[2019-06-08 11:37] VITALS: BMI 21.4
[2019-06-10] MEDS ORDERED: PHENYLEPHRINE-NS 100 MCG/ML 10 ML SYRINGE ONE (11:02)
[2019-06-10] MEDS ORDERED: PROPOFOL 200 MG/20 ML VIAL ONE (11:02)
[2019-06-10] MEDS ORDERED: Rocuronium Bromide 10 MG/ML (10ML VIAL) ONE (11:02)
[2019-06-10] MEDS ORDERED: Ondansetron PF 4 MG/2 ML Vial ONE (11:02)
[2019-06-10] MEDS ORDERED: ePHEDrine/0.9% NaCl/PF SYRINGE 50 mg/10 ml ONE (11:02)
[2019-06-10] MEDS ORDERED: Lidocaine 1% PF 5 ML VIAL ONE (11:02)
[2019-06-10] MEDS ORDERED: Fentanyl 250 MCG/5 ML VIAL ONE (12:26)
[2019-06-10] MEDS ORDERED: Iothalamate Meglumine 60% 50 ML VIAL FS ONE (12:31)
[2019-06-10] MEDS ORDERED: cefTRIAXone\\ROCEPHIN 1 GM VIAL ONE (12:36)
[2019-06-10] MEDS ORDERED: Sodium Chloride 0.9% 100 ML ONE (12:36)
[2019-06-10] MEDS ORDERED: SUGAMMADEX SODIUM 200 MG/2 ML VIAL ONE (13:43)
[2019-06-10] MEDS ORDERED: Fentanyl 100 MCG/2 ML VIAL ONE (14:21)
--- NOTE | 2019-06-10 20:30 | OP ---
DATE OF PROCEDURE: 06/10/2019 SERVICE: Urology. PREOPERATIVE DIAGNOSIS: Right ureteropelvic junction and renal stones. POSTOPERATIVE DIAGNOSIS: Right ureteropelvic junction and renal stone. PROCEDURES PERFORMED: Right ureteroscopy, laser lithotripsy, basket extraction of stones, and placement of a 6 x 24 double-J stent with string attached. INDICATION FOR PROCEDURE: Mrs. Mera is a 78-year-old white female who previously had seen Dr. Mayes with a known approximately [address] Mayes told her that her kidney was no longer functional and had recommended that this stone be left. On my review, I did not feel that there was enough parenchymal loss to justify renal atrophy and recommended that we consider removing the stone and then checking Lasix renal scan subsequently. Risks and benefits of the surgery were discussed and she has agreed to proceed forward. DESCRIPTION OF PROCEDURE: After identification of armband and verification of consent, the patient was brought back to the operating room, where she underwent general anesthesia with endotracheal intubation. She was then placed in dorsal lithotomy position and prepped and draped in usual sterile fashion. After appropriate time-out, a lubricated 22-Ukrainian rigid cystoscope was introduced per urethra into the bladder. The bladder appeared normal without any significant abnormalities. Both ureters were in orthotopic location. Attention was turned to the right ureteral orifice which was cannulated with a 0.035 Sensor wire up to the level of renal pelvis. The cystoscope was then removed and a dual-lumen catheter was advanced over the Sensor wire up to the level of the proximal ureter. An Amplatz Super Stiff wire was then placed through the second lumen up into the renal pelvis. The dual-lumen was then removed and an 11/13 x 28 cm ureteral access sheath was advanced over the Super Stiff wire up to the level of the proximal ureter, where the stone was. The inner cannula and Super Stiff wire were then removed leaving the outer sheath and Sensor wire in place as a safety wire. A flexible digital ureteroscope was then passed through the ureteral access sheath into the ureter where the stone was immediately encountered. The irrigation caused the stone to get propulsive backward, retrograde into the kidney. We went after the stone there where it was found in the renal pelvis and then directed into a calyx. We brought in a 275 micron ball-tip laser fiber and used to fragment the stone into smaller pieces. Pyeloscopy demonstrated an additional stone in the lower pole which was also fragmented into smaller pieces. Then using a 1.9-Ukrainian ZeroTip Nitinol basket, all fragments were removed and upon completion, there were no stone fragments visualized within the kidney. Satisfied that all the stone fragments had been removed, pull-back ureteroscopy was employed, and no additional fragments were seen within the ureter. The sheath and ureteroscope were then completely removed and the cystoscope was then backloaded over the Sensor wire back into the bladder. A 6 x 24 double-J stent with string attached was advanced over the Sensor wire up to the level of renal pelvis. The wire was removed leaving a good curl in the kidney and a good curl in the bladder. The bladder was then emptied and the cystoscope removed. The string was affixed to the patient's pelvic area with an OpSite which was inspected on the one under IV on her hand to ensure that there was no adhesive reaction and none was encountered. There was no redness around the adhesive location from the OpSite for her IV. Therefore, I felt it was justified using the OpSite on her skin in her lower areas as well as it was unlikely that she would have an adhesive reaction as it is listed on her allergies. The patient was then taken out of positioning, awakened, taken to PACU for recovery in stable condition. COMPLICATIONS: None. ESTIMATED BLOOD LOSS: Minimal. RETAINED TUBE AND DRAINS: 6 x 24 double-J stent on the right with string attached. SPECIMENS: Stone for stone analysis. DISPOSITION: The patient will be discharged home and follow up with me in approximately 2 weeks at which point, we will plan for a stent removal the week prior, on Thursday, where she can gently pull the string and remove it. Job ID: [id number]
== END 2019-06-10 15:51 | disposition home or self-care (01) ==
LOC: SDC 08:21
PROVIDERS: ATTEND Urology
PROC: 0TF38ZZ Fragmentation in Right Kidney Pelvis, Via Natural or Artificial Opening Endoscopic (ICD-10-PCS; principal; 2019-06-10)
PROC: 0T768DZ Dilation of Right Ureter with Intraluminal Device, Via Natural or Artificial Opening Endoscopic (ICD-10-PCS; 2019-06-10)
DX: N20.2 Calculus of kidney with calculus of ureter (principal); N39.0 Urinary tract infection, site not specified; N39.46 Mixed incontinence; E03.9 Hypothyroidism, unspecified; E11.9 Type 2 diabetes mellitus without complications; Z79.82 Long term (current) use of aspirin; Z79.84 Long term (current) use of oral hypoglycemic drugs; Z79.899 Other long term (current) drug therapy; Z87.891 Personal history of nicotine dependence; Z88.2 Allergy status to sulfonamides; Z88.1 Allergy status to other antibiotic agents; Z88.8 Allergy status to other drugs, medicaments and biological substances; Z91.041 Radiographic dye allergy status; Z91.048 Other nonmedicinal substance allergy status
CPT/HCPCS: 52356; 76000; 82365; 82962; 88300; C1769; 36416; J0131; J0696; J2001; J2405; J2704; J3010; J3490

== ENCOUNTER 2019-09-19 13:23 | Outpatient (CLI) | payer MEDICARE, BC ==
--- NOTE | 2019-09-19 14:27 | ULT ---
Renal ultrasound: 09/19/2019 COMPARISON:None available HISTORY:History of renal stone disease TECHNIQUE: Multiplanar grayscale sonographic imaging of the kidneys and urinary bladder obtained. FINDINGS: Evaluation for renal stone disease is limited on ultrasound. The right kidney measures7.2 x 3.5 x 4.3 cm and demonstratesno solid renal mass or hydronephrosis. No obvious renal stone disease. Cortical thickness is approximately 1.2 cm. The left kidney measures9.4 x 5.2 x 4.5 cm and demonstratesno mass, hydronephrosis, or renal stone. The urinary bladderappears unremarkable. IMPRESSION:No hydronephrosis. If there is clinical concern for renal stone disease, KUB suggested.
== END 2019-09-19 13:24 | disposition home or self-care (01) ==
LOC: BICULT 13:23
PROVIDERS: ATTEND Urology
DX: N20.0 Calculus of kidney (principal)
CPT/HCPCS: 76770

== ENCOUNTER 2020-04-11 10:52 | Outpatient (CLI) | payer MEDICARE, BC ==
--- NOTE | 2020-04-11 14:37 | MMO ---
Bilateral MAMMO Bilat Screen [facility]. CLINICAL HISTORY: Patient is 79 years old and is seen for screening. The patient has the following family history of breast cancer: sister, malignant (generic). The patient has a history of colon cancer in 2011. The patient has a history of right Ultrasound Guided Core Biopsy in May, - benign. VIEWS: The views performed were: bilateral craniocaudal with tomosynthesis and bilateral mediolateral oblique with tomosynthesis. FILMS COMPARED: The present examination has been compared to prior imaging studies performed at [facility] on 04/01/2016, 04/03/2017, 04/05/2018 and 04/06/2019. This study has been interpreted with the assistance of computer-aided detection. MAMMOGRAM FINDINGS: There are scattered fibroglandular densities. There are no suspicious masses, suspicious calcifications, or new areas of architectural distortion. IMPRESSION: THERE IS NO MAMMOGRAPHIC EVIDENCE OF MALIGNANCY. A ROUTINE FOLLOW-UP MAMMOGRAM IN 1 YEAR IS RECOMMENDED. THE RESULTS OF THIS EXAM WERE SENT TO THE PATIENT. ACR BI-RADS Category 1 - Negative MAMMOGRAPHY NOTE: 1. A negative mammogram report should not delay a biopsy if a dominant of clinically suspicious mass is present. 2. Approximately 10% to 15% of breast cancers are not detected by mammography. 3. Adenosis and dense breasts may obscure an underlying neoplasm. Reported by: THONY CALLES MD Electonically Signed: [id number]
== END 2020-04-11 10:53 | disposition home or self-care (01) ==
LOC: BICMAMMO 10:52
PROVIDERS: ATTEND Obstetrics & Gynecology
DX: Z12.31 Encounter for screening mammogram for malignant neoplasm of breast (principal); Z80.3 Family history of malignant neoplasm of breast; Z85.038 Personal history of other malignant neoplasm of large intestine; Z91.89 Other specified personal risk factors, not elsewhere classified
CPT/HCPCS: 77063; 77067

== ENCOUNTER 2021-04-15 10:51 | Outpatient (CLI) | payer MEDICARE, BC | END 2021-04-15 10:52 | disposition home or self-care (01) | LOC: BICMAMMO 10:51 | PROVIDERS: ATTEND Obstetrics & Gynecology | DX: Z12.31 Encounter for screening mammogram for malignant neoplasm of breast (principal); Z91.89 Other specified personal risk factors, not elsewhere classified; Z85.038 Personal history of other malignant neoplasm of large intestine; Z80.3 Family history of malignant neoplasm of breast | CPT/HCPCS: 77063; 77067 ==

== ENCOUNTER 2021-05-21 19:14 | Inpatient (IN) | payer MEDICARE, BC ==
[2021-05-21] MEDS ORDERED: Fentanyl 100 MCG/2 ML VIAL ONE ×2 (20:08→21:02)
[2021-05-21 20:12] LABS: #Basophils 0.1 thou/uL (0.0-0.2); #Eosinphils 0.1 thou/uL (0.0-0.7); #Lymphocytes 1.9 thou/uL (1.20-3.40); #Neutrophils 9.3 thou/uL (1.40-6.50); %Basophils 0.8 % (0.0-1.0); %Eosinophils 0.4 % (0.0-10.0); %Lymphocytes 15.1 % (21.0-51.0); %Monocytes 8.5 % (0.0-10.0); %Neutrophils 75.2 % (42.0-75.0); Hemoglobin 11.9 g/dL (12.0-16.0); Mean Corpuscular HGB CONC 32.2 g/dL (32.0-36.0); Mean Corpuscular Hemoglobin 36.1 pg (27.0-31.0); Mean Platelet Volume 7.2 fL (7.4-10.4); Platelet Count 199 thou/uL (130-400); RBC Distribution Width 15.1 % (11.5-14.5); Red Blood Cell (RBC) Count 3.31 mill/uL (4.20-5.40); White Blood Cell (WBC) Count 12.3 thou/uL (4.8-10.8)
[2021-05-21 20:40] LABS: ALT (SGPT) 9 U/L (8-55); AST (SGOT) 14 U/L (5-34); Albumin 3.7 g/dL (3.4-4.8); Alkaline Phosphatase 64 U/L (40-110); Anion Gap 17 mmol/L (10-20); BUN (Urea Nitrogen) 51 mg/dL (9.8-20.1); Bilirubin, Total 0.4 mg/dL (0.2-1.2); Calc. Creatinine Clearance 0 mL/min (70-130); Calcium 9.6 mg/dL (7.8-10.44); Carbon Dioxide 25 mmol/L (23-31); Chloride 103 mmol/L (98-107); Globulin 2.6 g/dL (2.4-3.5); Glucose 151 mg/dL (83-110); Potassium 4.8 mmol/L (3.5-5.1); Protein, Total 6.3 g/dL (5.8-8.1); Sodium 140 mmol/L (136-145)
[2021-05-21 22:12] LABS: Bilirubin Negative (Negative); Blood, Urine Negative (Negative); Clarity Clear (Clear); Glucose, Urine (Dipstick) Normal (Negative); Ketone, Urine 10 mg/dL (Negative); Leukocyte Negative Leu/uL (Negative); Nitrite Negative (Negative); Protein, Urine (Dipstick) 20 mg/dL (Neg-Trace); Specific Gravity, Urine 1.012 (1.002-1.036); Urobilinogen Normal mg/dL (Less than 2); pH, Urine 5.5 (5.0-9.0)
[2021-05-21] MEDS ORDERED: Dextrose 50% Abboject 50 ML SYRINGE SLOW IVP PRN (22:22)
[2021-05-21] MEDS ORDERED: Ondansetron ODT 4 MG TAB PO PRN (22:22)
[2021-05-21] MEDS ORDERED: Insulin Regular 300 UNITS/3 ML VIAL SC PRN (22:22)
[2021-05-21] MEDS ORDERED: Ondansetron PF 4 MG/2 ML Vial IVP PRN (22:22)
[2021-05-21] MEDS ORDERED: Dextrose 5% in Water 1,000 ML IV PRN (22:22)
[2021-05-21] MEDS ORDERED: Cyclobenzaprine 10 MG TAB PO PRN (22:31)
[2021-05-21] MEDS ORDERED: traMADol HCl 50 MG TAB PO PRN (22:31)
[2021-05-21 22:58] LABS: Phosphorus 2.7 mg/dL (2.3-4.7)
[2021-05-21] MEDS ORDERED: Acetaminophen/Codeine 30-300mg Tablet PO PRN (23:01)
[2021-05-21] MEDS ORDERED: Acetaminophen 500 MG TAB PO SCH (23:59)
[2021-05-21] MEDS ORDERED: traMADol HCl 50 MG TAB PO SCH (23:59)
[2021-05-22] MEDS: Acetaminophen 500 MG TAB PO SCH ×4 (00:22→19:23)
[2021-05-22] MEDS: Morphine 4 MG/ML VIAL SLOW IVP PRN ×2 (00:22→15:31)
[2021-05-22] MEDS: Sodium Chloride 0.9% 1,000 ML IV SCH ×2 (00:23→15:36)
[2021-05-22 01:16] VITALS: BMI 18.3
[2021-05-22 03:49] LABS: SARS-CoV-2 NAA Rapid Test Not Detected (NotDetected)
[2021-05-22] MEDS: hydrALAZINE 20 MG/ML VIAL SLOW IVP PRN (04:13)
[2021-05-22 06:38] LABS: #Basophils 0.1 thou/uL (0.0-0.2); #Eosinphils 0.1 thou/uL (0.0-0.7); #Lymphocytes 1.8 thou/uL (1.20-3.40); #Monocytes 1.1 thou/uL (0.11-0.59); %Basophils 0.6 % (0.0-1.0); %Eosinophils 0.6 % (0.0-10.0); %Lymphocytes 20.1 % (21.0-51.0); %Monocytes 11.8 % (0.0-10.0); Hemoglobin 11.3 g/dL (12.0-16.0); Mean Corpuscular HGB CONC 33.8 g/dL (32.0-36.0); Mean Corpuscular Hemoglobin 37.4 pg (27.0-31.0); Mean Platelet Volume 7.9 fL (7.4-10.4); Platelet Count 170 thou/uL (130-400); RBC Distribution Width 14.9 % (11.5-14.5); Red Blood Cell (RBC) Count 3.01 mill/uL (4.20-5.40)
[2021-05-22 07:00] LABS: Anion Gap 15 mmol/L (10-20); BUN (Urea Nitrogen) 47 mg/dL (9.8-20.1); Calc. Creatinine Clearance 12 mL/min (70-130); Carbon Dioxide 25 mmol/L (23-31); Chloride 106 mmol/L (98-107); Glucose 166 mg/dL (83-110); Magnesium 1.9 mg/dL (1.6-2.6); Potassium 5.1 mmol/L (3.5-5.1); Sodium 141 mmol/L (136-145)
[2021-05-22 07:02] LABS: Phosphorus 3.3 mg/dL (2.3-4.7)
[2021-05-22] MEDS ORDERED: Famotidine 20 MG TAB PO SCH (09:00)
[2021-05-22] MEDS ORDERED: CEFAZOLIN 2 GM in Premix Bag 1 BAG IVPB SCH (09:00)
[2021-05-22] MEDS: Senokot S 8.6-50 MG TAB PO SCH ×2 (10:48→21:12)
[2021-05-22] MEDS: Polyethylene Glycol 3350 17 GM Packet PO SCH (10:48)
[2021-05-22] MEDS ORDERED: ceFAZolin 2 GM/DEX 5% 100 ML BAG ONE (11:56)
[2021-05-22] MEDS ORDERED: Fentanyl 100 MCG/2 ML VIAL ONE (12:03)
[2021-05-22] MEDS ORDERED: Lidocaine 1% PF 5 ML VIAL ONE (12:04)
[2021-05-22] MEDS ORDERED: Glycopyrrolate 0.2 MG/ML 5 ML SYRINGE ONE (12:04)
[2021-05-22] MEDS ORDERED: PHENYLEPHRINE-NS 100 MCG/ML 10 ML SYRINGE ONE (12:04)
[2021-05-22] MEDS ORDERED: Ondansetron PF 4 MG/2 ML Vial ONE (12:04)
[2021-05-22] MEDS ORDERED: PROPOFOL 200 MG/20 ML VIAL ONE (12:04)
[2021-05-22] MEDS ORDERED: Rocuronium Bromide 10 MG/ML (10ML VIAL) ONE (12:04)
[2021-05-22] MEDS ORDERED: Promethazine HCl 25 MG/ML VIAL IVPB PRN (13:31)
[2021-05-22] MEDS ORDERED: Ondansetron HCl/PF 4 MG/2 ML Vial IVP PRN (13:31)
[2021-05-22] MEDS ORDERED: Promethazine HCl 25 MG/ML VIAL IM PRN (13:31)
[2021-05-22] MEDS ORDERED: hydrALAZINE 20 MG/ML VIAL ONE (13:45)
[2021-05-22] MEDS ORDERED: ceFAZolin Sodium/D5W 2 GM in Premix Bag 1 BAG IVPB SCH (20:00)
[2021-05-23] MEDS: Acetaminophen 500 MG TAB PO SCH ×2 (01:03→06:00)
[2021-05-23] MEDS: Sodium Chloride 0.9% 1,000 ML IV SCH ×2 (02:52→05:49)
[2021-05-23] MEDS: CEFAZOLIN 2 GM, Admixture Fee 1 EACH in Sodium Chloride 0.9% 100 ML IVPB SCH ×2 (03:58→12:30)
[2021-05-23] MEDS: hydrALAZINE 20 MG/ML VIAL SLOW IVP PRN ×2 (03:59→21:28)
[2021-05-23 06:42] LABS: #Basophils 0.1 thou/uL (0.0-0.2); #Eosinphils 0.1 thou/uL (0.0-0.7); #Lymphocytes 1.7 thou/uL (1.20-3.40); #Monocytes 1.3 thou/uL (0.11-0.59); #Neutrophils 9.8 thou/uL (1.40-6.50); %Basophils 0.7 % (0.0-1.0); %Eosinophils 0.5 % (0.0-10.0); %Lymphocytes 13.3 % (21.0-51.0); %Monocytes 10.1 % (0.0-10.0); %Neutrophils 75.4 % (42.0-75.0); Hemoglobin 10.8 g/dL (12.0-16.0); Mean Corpuscular HGB CONC 32.7 g/dL (32.0-36.0); Mean Corpuscular Hemoglobin 37.4 pg (27.0-31.0); Mean Platelet Volume 7.3 fL (7.4-10.4); Platelet Count 156 thou/uL (130-400); RBC Distribution Width 15.2 % (11.5-14.5); Red Blood Cell (RBC) Count 2.89 mill/uL (4.20-5.40)
[2021-05-23 06:51] LABS: Anion Gap 18 mmol/L (10-20); BUN (Urea Nitrogen) 38 mg/dL (9.8-20.1); Calc. Creatinine Clearance 12 mL/min (70-130); Calcium 8.6 mg/dL (7.8-10.44); Carbon Dioxide 20 mmol/L (23-31); Chloride 106 mmol/L (98-107); Glucose 195 mg/dL (83-110); Magnesium 1.6 mg/dL (1.6-2.6); Phosphorus 4.1 mg/dL (2.3-4.7); Potassium 4.4 mmol/L (3.5-5.1); Sodium 140 mmol/L (136-145)
[2021-05-23] MEDS: Insulin Regular 300 UNITS/3 ML VIAL SC PRN ×2 (07:00→17:46)
[2021-05-23] MEDS ORDERED: Magnesium 2 GM/50 ML 2 GM in Premix Bag 1 BAG IVPB SCH (08:15)
[2021-05-23] MEDS: Heparin 5,000 UNITS/ML VIAL SC SCH ×3 (09:04→21:15)
[2021-05-23] MEDS: Senokot S 8.6-50 MG TAB PO SCH ×2 (09:05→21:16)
[2021-05-23] MEDS: Polyethylene Glycol 3350 17 GM Packet PO SCH (09:07)
[2021-05-23] MEDS: Acetaminophen/Codeine 30-300mg Tablet PO PRN (12:29)
[2021-05-23] MEDS: Acetaminophen 325 MG TAB PO SCH ×2 (12:29→17:45)
[2021-05-24] MEDS: Acetaminophen 325 MG TAB PO SCH ×3 (00:35→12:34)
[2021-05-24] MEDS: Acetaminophen/Codeine 30-300mg Tablet PO PRN ×2 (04:38→10:52)
[2021-05-24 05:02] LABS: #Eosinphils 0.1 thou/uL (0.0-0.7); #Monocytes 0.9 thou/uL (0.11-0.59); #Neutrophils 8.2 thou/uL (1.40-6.50); %Basophils 0.2 % (0.0-1.0); %Eosinophils 0.9 % (0.0-10.0); %Lymphocytes 10.1 % (21.0-51.0); %Monocytes 8.4 % (0.0-10.0); %Neutrophils 80.5 % (42.0-75.0); Hemoglobin 8.6 g/dL (12.0-16.0); Mean Corpuscular Hemoglobin 38.1 pg (27.0-31.0); Mean Platelet Volume 7.6 fL (7.4-10.4); Platelet Count 139 thou/uL (130-400); RBC Distribution Width 14.7 % (11.5-14.5); Red Blood Cell (RBC) Count 2.25 mill/uL (4.20-5.40); White Blood Cell (WBC) Count 10.1 thou/uL (4.8-10.8)
[2021-05-24 05:23] LABS: Anion Gap 16 mmol/L (10-20); BUN (Urea Nitrogen) 35 mg/dL (9.8-20.1); Calc. Creatinine Clearance 12 mL/min (70-130); Calcium 8.6 mg/dL (7.8-10.44); Carbon Dioxide 22 mmol/L (23-31); Chloride 105 mmol/L (98-107); Glucose 193 mg/dL (83-110); Magnesium 2.3 mg/dL (1.6-2.6); Phosphorus 4.1 mg/dL (2.3-4.7); Potassium 4.1 mmol/L (3.5-5.1); Sodium 139 mmol/L (136-145)
[2021-05-24] MEDS: Insulin Regular 300 UNITS/3 ML VIAL SC PRN ×2 (05:42→12:34)
[2021-05-24] MEDS: Polyethylene Glycol 3350 17 GM Packet PO SCH (08:47)
[2021-05-24] MEDS: Senokot S 8.6-50 MG TAB PO SCH (08:48)
[2021-05-24 09:37] VITALS: TEMP 97.4
[2021-05-24] MEDS: Heparin 5,000 UNITS/ML VIAL SC SCH ×2 (09:51→16:13)
[2021-05-24 13:10] VITALS: BP 135/68
[2021-05-24] MEDS ORDERED: Melatonin 3 MG TAB PO SCH (21:00)
[2021-05-25] MEDS ORDERED: FLU VACC QS2021-22(65YR UP)/PF 240 MCG/0.7 ML SYRINGE IM ONE (09:00)
== END 2021-05-24 15:25 | DRG 481 ==
LOC: ERS 19:14 → SURG A 22:28
PROVIDERS: ADMIT Surgery; ATTEND Surgery
PROC: 0QS604Z Reposition Right Upper Femur with Internal Fixation Device, Open Approach (ICD-10-PCS; principal; 2021-05-22)
DX: S72.141A Displaced intertrochanteric fracture of right femur, initial encounter for closed fracture (principal); N18.4 Chronic kidney disease, stage 4 (severe); Z20.822 Contact with and (suspected) exposure to COVID-19; E78.5 Hyperlipidemia, unspecified; E03.9 Hypothyroidism, unspecified; W18.30XA Fall on same level, unspecified, initial encounter; M54.9 Dorsalgia, unspecified; G89.29 Other chronic pain; I12.9 Hypertensive chronic kidney disease with stage 1 through stage 4 chronic kidney disease, or unspecified chronic kidney disease; E11.22 Type 2 diabetes mellitus with diabetic chronic kidney disease; Z91.041 Radiographic dye allergy status; D64.89 Other specified anemias; Z88.2 Allergy status to sulfonamides; Z88.8 Allergy status to other drugs, medicaments and biological substances; Z85.038 Personal history of other malignant neoplasm of large intestine; Z87.891 Personal history of nicotine dependence
CPT/HCPCS: 36415; 36416; 51702; 71045; 72192; 76000; 80048; 80053; 81003; 83735; 84100; 85025; 87086; 96374; 96376; C1713; G0390; J0360; J0690; J1644; J1815; J2270; J2405; J2704; J3010; J3475; J3490; J7050; U0002

== ENCOUNTER 2021-12-03 11:51 | Outpatient (CLI) | payer MEDICARE, BC | END 2021-12-03 11:52 | disposition home or self-care (01) | LOC: DTY/OP 11:51 | PROVIDERS: ATTEND Family Medicine | DX: N18.5 Chronic kidney disease, stage 5 (principal) | CPT/HCPCS: 97802 ==

== ENCOUNTER 2022-07-24 14:17 | Outpatient (CLI) | payer MEDICARE, BC | END 2022-07-24 14:18 | disposition home or self-care (01) | LOC: BICMAMMO 14:17 | PROVIDERS: ATTEND Family Medicine | DX: Z00.00 Encounter for general adult medical examination without abnormal findings (principal); M81.0 Age-related osteoporosis without current pathological fracture | CPT/HCPCS: 77080 ==

== ENCOUNTER 2022-11-04 01:11 | Observation (INO) | payer MEDICARE, BC ==
[2022-11-04] MEDS ORDERED: Diltiazem HCl 125 MG, Admixture Fee 1 EACH in Sodium Chloride 0.9% 100 ML IVPB SCH (01:45)
[2022-11-04] MEDS ORDERED: Acetaminophen 325 MG TAB PO PRN (01:45)
[2022-11-04] MEDS ORDERED: Ondansetron PF 4 MG/2 ML Vial IVP PRN (01:45)
[2022-11-04] MEDS ORDERED: Ondansetron ODT 4 MG TAB SL PRN (01:45)
[2022-11-04 01:53] VITALS: BMI 18.2
[2022-11-04] MEDS: Methyl Salicylate/Menthol 85 GM TUBE TOP PRN ×2 (03:57→15:15)
[2022-11-04] MEDS ORDERED: Heparin 25,000 units/D5W 500 ML IV SCH (04:15)
[2022-11-04 05:08] LABS: #Eosinphils 0.1 thou/uL (0.0-0.7); #Lymphocytes 2.9 thou/uL (1.20-3.40); #Neutrophils 5.5 thou/uL (1.40-6.50); %Basophils 0.3 % (0.0-1.0); %Eosinophils 1.1 % (0.0-10.0); %Lymphocytes 30.5 % (21.0-51.0); %Monocytes 10.4 % (0.0-10.0); %Neutrophils 57.6 % (42.0-75.0); Hemoglobin 11.7 g/dL (12.0-16.0); Mean Corpuscular HGB CONC 31.9 g/dL (32.0-36.0); Mean Corpuscular Volume 97.3 fl (78.0-98.0); Mean Platelet Volume 8.3 fL (7.4-10.4); Platelet Count 128 10x3/uL (130-400); Red Blood Cell (RBC) Count 3.76 mill/uL (4.20-5.40); White Blood Cell (WBC) Count 9.6 10x3/uL (4.8-10.8)
[2022-11-04 05:27] LABS: Anion Gap 16 mmol/L (10-20); BUN (Urea Nitrogen) 40 mg/dL (9.8-20.1); Calc. Creatinine Clearance 12 mL/min (70-130); Calcium 9.1 mg/dL (7.8-10.44); Carbon Dioxide 21 mmol/L (23-31); Chloride 105 mmol/L (98-107); Estimated GFR 19; Glucose 110 mg/dL (83-110); Potassium 3.6 mmol/L (3.5-5.1); Sodium 138 mmol/L (136-145)
[2022-11-04] MEDS: Heparin 10,000 UNITS/ 10 ML VIAL SLOW IVP SCH ×2 (05:52→13:12)
[2022-11-04] MEDS ORDERED: Dextrose 5% in Water 1,000 ML IV PRN (08:36)
[2022-11-04] MEDS ORDERED: Dextrose 50% Abboject 50 ML SYRINGE SLOW IVP PRN (08:36)
[2022-11-04] MEDS ORDERED: HumaLOG 300 UNITS/3 ML VIAL SC PRN (08:36)
[2022-11-04 09:22] LABS: Troponin I 0.055 ng/mL (< 0.028)
[2022-11-04] MEDS ORDERED: Lactated Ringer's 500 ML IV SCH (10:00)
[2022-11-04] MEDS ORDERED: Amiodarone 200 MG TAB PO SCH (10:45)
[2022-11-04] MEDS ORDERED: cloNIDine 0.1 MG TAB PO PRN (12:05)
[2022-11-04 13:00] LABS: Troponin I 0.056 ng/mL (< 0.028)
[2022-11-04] MEDS ORDERED: Sevelamer Carbonate 800 MG TAB PO SCH (13:15)
[2022-11-04] MEDS: Diltiazem HCl 125 MG, Admixture Fee 1 EACH in Sodium Chloride 0.9% 100 ML IVPB SCH (15:55)
[2022-11-04] MEDS: Amiodarone 200 MG TAB PO SCH ×2 (15:56→21:17)
[2022-11-04 17:21] LABS: Troponin I 0.044 ng/mL (< 0.028)
[2022-11-04] MEDS: Sevelamer Carbonate 800 MG TAB PO SCH (18:41)
[2022-11-04] MEDS ORDERED: Metamucil PACK PO SCH (21:00)
[2022-11-04] MEDS ORDERED: Calcium Carbonate 600 MG + Vit D TAB PO SCH (21:00)
[2022-11-05] MEDS: Diltiazem HCl 125 MG, Admixture Fee 1 EACH in Sodium Chloride 0.9% 100 ML IVPB SCH (04:53)
[2022-11-05] MEDS: Sevelamer Carbonate 800 MG TAB PO SCH ×2 (08:00→13:58)
[2022-11-05] MEDS: Amiodarone 200 MG TAB PO SCH (08:04)
[2022-11-05 08:28] LABS: #Basophils 0.1 thou/uL (0.0-0.2); #Eosinphils 0.1 thou/uL (0.0-0.7); #Lymphocytes 2.2 thou/uL (1.20-3.40); #Monocytes 0.8 thou/uL (0.11-0.59); #Neutrophils 4.2 thou/uL (1.40-6.50); %Basophils 1.1 % (0.0-1.0); %Eosinophils 1.9 % (0.0-10.0); %Lymphocytes 29.2 % (21.0-51.0); %Monocytes 10.8 % (0.0-10.0); Hemoglobin 11.2 g/dL (12.0-16.0); Mean Corpuscular Hemoglobin 30.6 pg (27.0-31.0); Mean Corpuscular Volume 98.7 fl (78.0-98.0); Mean Platelet Volume 8.8 fL (7.4-10.4); Platelet Count 126 10x3/uL (130-400); RBC Distribution Width 15.2 % (11.5-14.5); Red Blood Cell (RBC) Count 3.66 mill/uL (4.20-5.40); White Blood Cell (WBC) Count 7.4 10x3/uL (4.8-10.8)
[2022-11-05 08:29] LABS: Anion Gap 14 mmol/L (10-20); BUN (Urea Nitrogen) 42 mg/dL (9.8-20.1); Calc. Creatinine Clearance 11 mL/min (70-130); Calcium 9.2 mg/dL (7.8-10.44); Carbon Dioxide 24 mmol/L (23-31); Chloride 105 mmol/L (98-107); Estimated GFR 18; Glucose 133 mg/dL (83-110); Potassium 3.7 mmol/L (3.5-5.1); Sodium 139 mmol/L (136-145)
[2022-11-05] MEDS ORDERED: GLYCOPYRROLATE/PF 0.2 MG/ML VIAL ONE (08:30)
[2022-11-05] MEDS ORDERED: PROPOFOL 200 MG/20 ML VIAL ONE (08:30)
[2022-11-05] MEDS ORDERED: Atropine Sulfate 0.4 mg/1 ml Vial ONE (08:30)
[2022-11-05] MEDS ORDERED: Atropine Sulfate 1 mg/10 ml Syringe ONE ×2 (08:54→08:55)
[2022-11-05] MEDS ORDERED: Floranex 1 GM Packet PO SCH (09:00)
[2022-11-05] MEDS ORDERED: Zinc Sulfate 220 MG CAP PO SCH (09:00)
[2022-11-05] MEDS ORDERED: Insulin Glargine 30 UNITS/0.3 ML VIAL SC SCH (09:00)
[2022-11-05] MEDS ORDERED: Amiodarone 200 MG TAB PO SCH ×2 (13:15→21:00)
[2022-11-05] MEDS ORDERED: Apixaban 2.5 MG TAB PO SCH ×2 (13:15→21:00)
[2022-11-05] MEDS ORDERED: Acetaminophen 325 MG TAB PO PRN (14:04)
[2022-11-05 16:54] VITALS: BP 176/76; TEMP 99.4
[2022-11-05] MEDS ORDERED: Amlodipine 5 MG TAB PO SCH (21:00)
== END 2022-11-05 17:52 | disposition home or self-care (01) ==
LOC: 2SW 01:11
PROVIDERS: ADMIT Internal Medicine; ATTEND Internal Medicine
PROC: B246ZZ4 Ultrasonography of Right and Left Heart, Transesophageal (ICD-10-PCS; principal; 2022-11-05)
DX: I48.92 Unspecified atrial flutter (principal); I08.1 Rheumatic disorders of both mitral and tricuspid valves; I70.0 Atherosclerosis of aorta; R77.8 Other specified abnormalities of plasma proteins; I13.0 Hypertensive heart and chronic kidney disease with heart failure and stage 1 through stage 4 chronic kidney disease, or unspecified chronic kidney disease; N18.4 Chronic kidney disease, stage 4 (severe); I50.30 Unspecified diastolic (congestive) heart failure; D63.1 Anemia in chronic kidney disease; D50.9 Iron deficiency anemia, unspecified; R63.6 Underweight; Z68.1 Body mass index [BMI] 19.9 or less, adult; Z66 Do not resuscitate; Z85.038 Personal history of other malignant neoplasm of large intestine; Z87.891 Personal history of nicotine dependence; Z79.4 Long term (current) use of insulin; Z79.899 Other long term (current) drug therapy; Z88.1 Allergy status to other antibiotic agents; Z88.2 Allergy status to sulfonamides; Z88.4 Allergy status to anesthetic agent; Z88.7 Allergy status to serum and vaccine; Z88.8 Allergy status to other drugs, medicaments and biological substances; Z91.041 Radiographic dye allergy status; Z91.048 Other nonmedicinal substance allergy status; Z90.49 Acquired absence of other specified parts of digestive tract
CPT/HCPCS: 36415; 36416; 80048; 84443; 84484; 85025; 85730; 92960; 93005; 93306; 93312; 96374; 96375; 96376; G0378; G0379; J0461; J1644; J2704; J3490

== ENCOUNTER 2023-03-02 11:41 | Emergency (ER) | payer MEDICARE, BC ==
[2023-03-02] MEDS ORDERED: Morphine 2 MG/ML VIAL ONE (12:35)
[2023-03-02 13:03] LABS: #Eosinphils 0.1 thou/uL (0.0-0.7); #Monocytes 0.8 thou/uL (0.11-0.59); %Basophils 0.3 % (0.0-1.0); %Eosinophils 0.5 % (0.0-10.0); %Lymphocytes 9.3 % (21.0-51.0); %Monocytes 6.5 % (0.0-10.0); %Neutrophils 82.9 % (42.0-75.0); Hematocrit 32.6 % (36.0-47.0); Hemoglobin 9.8 g/dL (12.0-16.0); Mean Corpuscular HGB CONC 30.1 g/dL (32.0-36.0); Mean Corpuscular Hemoglobin 29.9 pg (27.0-31.0); Mean Corpuscular Volume 99.4 fl (78.0-98.0); Mean Platelet Volume 9.8 fL (7.4-10.4); Platelet Count 164 10x3/uL (130-400); RBC Distribution Width 16.1 % (11.5-14.5); Red Blood Cell (RBC) Count 3.28 mill/uL (4.20-5.40); White Blood Cell (WBC) Count 12.1 10x3/uL (4.8-10.8)
[2023-03-02 13:18] LABS: Bacteria/HPF None Seen HPF (None Seen); Bilirubin Negative (Negative); Blood, Urine Trace (Negative); CAUTI Indications for Culture Pelvic or flank pain; Clarity Clear (Clear); Glucose, Urine (Dipstick) 70 mg/dL (Negative); Ketone, Urine Negative (Negative); Leukocyte Negative Leu/uL (Negative); Nitrite Negative (Negative); Protein, Urine (Dipstick) 30 mg/dL (Neg-Trace); RBC/HPF None Seen HPF (0-3); Squamous Epithelial None Seen HPF (0-3); Urobilinogen Normal mg/dL (Less than 2); WBC/HPF 0-3 HPF (0-3); pH, Urine 6.5 (5.0-9.0)
[2023-03-02 13:28] LABS: ALT (SGPT) 10 U/L (8-55); AST (SGOT) 9 U/L (5-34); Albumin 3.3 g/dL (3.4-4.8); Alkaline Phosphatase 68 U/L (40-110); Anion Gap 12 mmol/L (10-20); BUN (Urea Nitrogen) 23 mg/dL (9.8-20.1); Bilirubin, Total 0.4 mg/dL (0.2-1.2); Calc. Creatinine Clearance 0 mL/min (70-130); Carbon Dioxide 24 mmol/L (23-31); Chloride 111 mmol/L (98-107); Estimated GFR 21; Globulin 3.1 g/dL (2.4-3.5); Glucose 174 mg/dL (83-110); Potassium 3.6 mmol/L (3.5-5.1); Protein, Total 6.4 g/dL (5.8-8.1); Sodium 143 mmol/L (136-145)
[2023-03-02 13:30] LABS: Urine Culture Reflex No No
[2023-03-02] MEDS ORDERED: Morphine 4 MG/ML VIAL ONE (14:25)
== END 2023-03-02 20:34 ==
LOC: ERS 11:41
DX: S32.511A Fracture of superior rim of right pubis, initial encounter for closed fracture (principal); S32.512A Fracture of superior rim of left pubis, initial encounter for closed fracture; S32.591A Other specified fracture of right pubis, initial encounter for closed fracture; S32.592A Other specified fracture of left pubis, initial encounter for closed fracture; I12.9 Hypertensive chronic kidney disease with stage 1 through stage 4 chronic kidney disease, or unspecified chronic kidney disease; N18.4 Chronic kidney disease, stage 4 (severe); E11.22 Type 2 diabetes mellitus with diabetic chronic kidney disease; E03.9 Hypothyroidism, unspecified; Z79.01 Long term (current) use of anticoagulants; Z79.899 Other long term (current) drug therapy; W18.30XA Fall on same level, unspecified, initial encounter
CPT/HCPCS: 36415; 51701; 70450; 71250; 74177; 80053; 81001; 85025; 96374; 96376; J2270; J2272

== ENCOUNTER 2023-05-04 14:13 | Outpatient (CLI) | payer MEDICARE, BC | END 2023-05-04 14:14 | disposition home or self-care (01) | LOC: SCSRAD 14:13 | PROVIDERS: ATTEND Family Medicine | DX: M54.50 Low back pain, unspecified (principal); Z98.890 Other specified postprocedural states | CPT/HCPCS: 72100 ==

== ENCOUNTER 2023-05-05 13:34 | Inpatient (IN) | payer MEDICARE, BC ==
[2023-05-05] MEDS ORDERED: hydrALAZINE 25 MG TAB PO PRN (15:38)
[2023-05-05] MEDS ORDERED: Insulin Regular 300 UNITS/3 ML VIAL SC PRN ×2 (15:39)
[2023-05-05] MEDS ORDERED: Dextrose 5% in Water 1,000 ML IV PRN (15:39)
[2023-05-05] MEDS ORDERED: Dextrose 50% Abboject 50 ML SYRINGE SLOW IVP PRN (15:39)
[2023-05-05] MEDS ORDERED: Glucagon 1 MG/ML KIT IM PRN (15:39)
[2023-05-05] MEDS ORDERED: traMADol HCl 50 MG TAB PO PRN (15:41)
[2023-05-05] MEDS ORDERED: Iron Sucrose Complex 200 MG in Sodium Chloride 0.9% 100 ML IVPB SCH (15:45)
[2023-05-05] MEDS ORDERED: Iron, Sodium Ferric Gluconate 125 MG in Sodium Chloride 0.9% 100 ML IVPB SCH (17:00)
[2023-05-05 17:18] LABS: Troponin I 0.038 ng/mL (< 0.028)
[2023-05-05] MEDS ORDERED: hydrALAZINE 20 MG/ML VIAL SLOW IVP PRN (17:32)
[2023-05-05] MEDS ORDERED: Iron, Sodium Ferric Gluconate 250 MG in Sodium Chloride 0.9% 250 ML 250 ML IVPB SCH (17:45)
[2023-05-05 19:15] LABS: Troponin I 0.042 ng/mL (< 0.028)
[2023-05-05] MEDS: Apixaban 2.5 MG TAB PO SCH (20:09)
[2023-05-05] MEDS: Amlodipine 5 MG TAB PO SCH (20:09)
[2023-05-05] MEDS ORDERED: Ondansetron PF 4 MG/2 ML Vial IVP PRN (22:03)
[2023-05-05] MEDS ORDERED: Sodium Chloride 0.9% 500 ML IV SCH (22:15)
[2023-05-06 05:13] LABS: #Basophils 0.1 thou/uL (0.0-0.2); #Monocytes 1.2 thou/uL (0.11-0.59); #Neutrophils 12.1 thou/uL (1.40-6.50); %Basophils 0.6 % (0.0-1.0); %Eosinophils 0.2 % (0.0-10.0); %Lymphocytes 16.3 % (21.0-51.0); %Monocytes 7.4 % (0.0-10.0); Hematocrit 32.7 % (36.0-47.0); Hemoglobin 10.3 g/dL (12.0-16.0); Mean Corpuscular HGB CONC 31.5 g/dL (32.0-36.0); Mean Corpuscular Hemoglobin 31.6 pg (27.0-31.0); Mean Corpuscular Volume 100.3 fl (78.0-98.0); Mean Platelet Volume 9.8 fL (7.4-10.4); Platelet Count 209 10x3/uL (130-400); Red Blood Cell (RBC) Count 3.26 mill/uL (4.20-5.40); White Blood Cell (WBC) Count 16.1 10x3/uL (4.8-10.8)
[2023-05-06 06:52] LABS: Hemoglobin A1c 5.2 % (4.0-6.0)
[2023-05-06 07:08] LABS: ALT (SGPT) 8 U/L (8-55); AST (SGOT) 15 U/L (5-34); Albumin 3.2 g/dL (3.4-4.8); Alkaline Phosphatase 112 U/L (40-110); Anion Gap 13 mmol/L (10-20); BUN (Urea Nitrogen) 38 mg/dL (9.8-20.1); Bilirubin, Total 0.3 mg/dL (0.2-1.2); Calc. Creatinine Clearance 10 mL/min (70-130); Calcium 7.7 mg/dL (7.8-10.44); Carbon Dioxide 24 mmol/L (23-31); Cardiac Risk 2.7 (Less than 4.5); Chloride 103 mmol/L (98-107); Cholesterol 104 mg/dl (< 200 Desired); Estimated GFR 18; Globulin 2.3 g/dL (2.4-3.5); Glucose 135 mg/dL (83-110); HDL Cholesterol 38 mg/dL (>60 Neg Risk); LDL Cholesterol, Calculated 47 mg/dL; Magnesium 2.1 mg/dL (1.6-2.6); Potassium 3.2 mmol/L (3.5-5.1); Protein, Total 5.5 g/dL (5.8-8.1); Sodium 137 mmol/L (136-145); Triglycerides 93 mg/dL (Less than 150)
[2023-05-06] MEDS: Apixaban 2.5 MG TAB PO SCH ×2 (09:04→20:04)
[2023-05-06] MEDS: Sevelamer Carbonate 800 MG TAB PO SCH ×3 (09:05→17:48)
[2023-05-06] MEDS ORDERED: Potassium Chloride 20 MEQ TAB PO SCH (10:30)
[2023-05-06] MEDS: Sodium Chloride 0.9% 1,000 ML IV SCH (11:07)
[2023-05-06 12:37] VITALS: BMI 16.6
[2023-05-06] MEDS: traMADol HCl 50 MG TAB PO PRN (18:33)
[2023-05-06] MEDS: Amlodipine 5 MG TAB PO SCH (20:04)
[2023-05-07] MEDS: traMADol HCl 50 MG TAB PO PRN ×4 (00:17→18:42)
[2023-05-07] MEDS: Sodium Chloride 0.9% 1,000 ML IV SCH (00:18)
[2023-05-07 04:44] LABS: #Eosinphils 0.2 thou/uL (0.0-0.7); #Monocytes 0.8 thou/uL (0.11-0.59); #Neutrophils 4.9 thou/uL (1.40-6.50); %Basophils 0.5 % (0.0-1.0); %Eosinophils 2.2 % (0.0-10.0); %Lymphocytes 31.5 % (21.0-51.0); %Neutrophils 56.5 % (42.0-75.0); Hematocrit 26.9 % (36.0-47.0); Hemoglobin 8.5 g/dL (12.0-16.0); Mean Corpuscular HGB CONC 31.6 g/dL (32.0-36.0); Mean Corpuscular Hemoglobin 31.7 pg (27.0-31.0); Mean Corpuscular Volume 100.4 fl (78.0-98.0); Mean Platelet Volume 9.2 fL (7.4-10.4); Platelet Count 166 10x3/uL (130-400); RBC Distribution Width 19.1 % (11.5-14.5); Red Blood Cell (RBC) Count 2.68 mill/uL (4.20-5.40); White Blood Cell (WBC) Count 8.7 10x3/uL (4.8-10.8)
[2023-05-07 05:18] LABS: Anion Gap 12 mmol/L (10-20); BUN (Urea Nitrogen) 32 mg/dL (9.8-20.1); Calc. Creatinine Clearance 13 mL/min (70-130); Carbon Dioxide 24 mmol/L (23-31); Chloride 108 mmol/L (98-107); Potassium 3.5 mmol/L (3.5-5.1); Sodium 140 mmol/L (136-145)
[2023-05-07 05:19] LABS: ALT (SGPT) 7 U/L (8-55); AST (SGOT) 13 U/L (5-34); Albumin 3.1 g/dL (3.4-4.8); Alkaline Phosphatase 107 U/L (40-110); Bilirubin, Total 0.2 mg/dL (0.2-1.2); Calcium 7.2 mg/dL (7.8-10.44); Estimated GFR 24; Globulin 2.2 g/dL (2.4-3.5); Glucose 101 mg/dL (83-110); Protein, Total 5.3 g/dL (5.8-8.1)
[2023-05-07] MEDS: Apixaban 2.5 MG TAB PO SCH ×2 (07:48→19:11)
[2023-05-07] MEDS: Sevelamer Carbonate 800 MG TAB PO SCH ×3 (07:48→17:21)
[2023-05-07] MEDS ORDERED: Polyethylene Glycol 3350 17 GM Packet PO PRN (08:48)
[2023-05-07] MEDS ORDERED: Iron Sucrose Complex 100 MG in Sodium Chloride 0.9% 100 ML IVPB SCH (09:00)
[2023-05-07] MEDS: Lactated Ringer's 1,000 ML IV SCH (09:30)
[2023-05-07] MEDS ORDERED: Iron, Sodium Ferric Gluconate 125 MG, Admixture Fee 1 EACH in Sodium Chloride 0.9% 100 ML IVPB SCH (12:00)
[2023-05-07] MEDS: Amlodipine 5 MG TAB PO SCH (19:12)
[2023-05-08] MEDS: traMADol HCl 50 MG TAB PO PRN ×2 (00:46→06:00)
[2023-05-08 04:45] LABS: #Eosinphils 0.2 thou/uL (0.0-0.7); #Monocytes 0.9 thou/uL (0.11-0.59); #Neutrophils 4.6 thou/uL (1.40-6.50); %Basophils 0.5 % (0.0-1.0); %Eosinophils 2.6 % (0.0-10.0); %Lymphocytes 28.6 % (21.0-51.0); %Monocytes 10.8 % (0.0-10.0); %Neutrophils 57.3 % (42.0-75.0); Hematocrit 25.9 % (36.0-47.0); Hemoglobin 8.1 g/dL (12.0-16.0); Mean Corpuscular HGB CONC 31.3 g/dL (32.0-36.0); Mean Corpuscular Hemoglobin 31.2 pg (27.0-31.0); Mean Corpuscular Volume 99.6 fl (78.0-98.0); Mean Platelet Volume 8.9 fL (7.4-10.4); Platelet Count 160 10x3/uL (130-400); RBC Distribution Width 19.2 % (11.5-14.5)
[2023-05-08] MEDS: Lactated Ringer's 1,000 ML IV SCH (05:08)
[2023-05-08 05:12] LABS: Anion Gap 11 mmol/L (10-20); BUN (Urea Nitrogen) 23 mg/dL (9.8-20.1); Calc. Creatinine Clearance 16 mL/min (70-130); Calcium 7.3 mg/dL (7.8-10.44); Carbon Dioxide 27 mmol/L (23-31); Chloride 109 mmol/L (98-107); Estimated GFR 31; Glucose 112 mg/dL (83-110); Magnesium 1.8 mg/dL (1.6-2.6); Potassium 3.5 mmol/L (3.5-5.1); Sodium 143 mmol/L (136-145)
[2023-05-08 07:39] VITALS: TEMP 97.7
[2023-05-08] MEDS ORDERED: Potassium Chloride 20 MEQ TAB PO SCH (09:00)
[2023-05-08] MEDS: Sevelamer Carbonate 800 MG TAB PO SCH (09:34)
[2023-05-08] MEDS: Apixaban 2.5 MG TAB PO SCH (09:34)
[2023-05-08 10:30] VITALS: BP 142/68
== END 2023-05-08 10:28 | disposition home or self-care (01) | DRG 683 ==
LOC: 2SW 13:34 → OBSVTOIN 05-06 17:06
PROVIDERS: ADMIT Internal Medicine; ATTEND Internal Medicine
DX: I12.9 Hypertensive chronic kidney disease with stage 1 through stage 4 chronic kidney disease, or unspecified chronic kidney disease (principal); I24.89 Other forms of acute ischemic heart disease; N18.4 Chronic kidney disease, stage 4 (severe); D63.1 Anemia in chronic kidney disease; I48.91 Unspecified atrial fibrillation; E11.22 Type 2 diabetes mellitus with diabetic chronic kidney disease; Z79.899 Other long term (current) drug therapy; Z79.01 Long term (current) use of anticoagulants; Z88.2 Allergy status to sulfonamides; Z91.041 Radiographic dye allergy status; Z91.048 Other nonmedicinal substance allergy status; Z88.7 Allergy status to serum and vaccine; Z88.6 Allergy status to analgesic agent; Z79.4 Long term (current) use of insulin; R79.89 Other specified abnormal findings of blood chemistry; M54.50 Low back pain, unspecified; Z98.890 Other specified postprocedural states
CPT/HCPCS: 36415; 36416; 72100; 80048; 80053; 80061; 83036; 83735; 85025; 96365; 96366; 96375; G0378; J2405; J2916; J3490; J7030; J7050; J7120

== ENCOUNTER 2023-06-03 10:26 | Day surgery (SDC) | payer MEDICARE, BC ==
[~2023-06-03 10:26] MED LIST: Acetaminophen 500 MG TAB PO SCH; diphenhydrAMINE 25 MG CAP PO SCH
[2023-06-03] MEDS ORDERED: Acetaminophen 500 MG TAB ONE (11:39)
[2023-06-03] MEDS ORDERED: diphenhydrAMINE 25 MG CAP ONE (11:39)
[2023-06-03 14:48] VITALS: BP 187/86; TEMP 97.6
[2023-06-03] MEDS ORDERED: FLU VACC QS2023(65UP)/MF59C/PF 60 MCG/0.5 ML SYRINGE IM ONE (15:00)
== END 2023-06-03 14:45 | disposition home or self-care (01) ==
LOC: ONC/OP 10:26
PROVIDERS: ATTEND Internal Medicine Hematology & Oncology
DX: D64.9 Anemia, unspecified (principal); D69.59 Other secondary thrombocytopenia
CPT/HCPCS: 36430; 86850; 86900; 86901; 86920; P9016

== ENCOUNTER 2023-06-18 19:35 | Emergency (ER) | payer MEDICARE, BC ==
[2023-06-18 20:56] LABS: #Basophils 0.1 thou/uL (0.0-0.2); #Eosinphils 0.1 thou/uL (0.0-0.7); #Monocytes 1.1 thou/uL (0.11-0.59); #Neutrophils 5.1 thou/uL (1.40-6.50); %Basophils 0.7 % (0.0-1.0); %Eosinophils 0.8 % (0.0-10.0); %Lymphocytes 30.2 % (21.0-51.0); %Monocytes 11.8 % (0.0-10.0); %Neutrophils 56.1 % (42.0-75.0); Hematocrit 31.8 % (36.0-47.0); Mean Corpuscular HGB CONC 31.4 g/dL (32.0-36.0); Mean Corpuscular Hemoglobin 32.8 pg (27.0-31.0); Mean Corpuscular Volume 104.3 fl (78.0-98.0); Mean Platelet Volume 9.4 fL (7.4-10.4); Platelet Count 204 10x3/uL (130-400); RBC Distribution Width 19.6 % (11.5-14.5); Red Blood Cell (RBC) Count 3.05 mill/uL (4.20-5.40); White Blood Cell (WBC) Count 9.2 10x3/uL (4.8-10.8)
[2023-06-18 21:23] LABS: ALT (SGPT) 11 U/L (8-55); AST (SGOT) 13 U/L (5-34); Albumin 3.4 g/dL (3.4-4.8); Alkaline Phosphatase 93 U/L (40-110); Anion Gap 11 mmol/L (10-20); BUN (Urea Nitrogen) 34 mg/dL (9.8-20.1); Bilirubin, Total 0.4 mg/dL (0.2-1.2); Calc. Creatinine Clearance 0 mL/min (70-130); Calcium 8.3 mg/dL (7.8-10.44); Carbon Dioxide 25 mmol/L (23-31); Chloride 103 mmol/L (98-107); Estimated GFR 21; Globulin 2.8 g/dL (2.4-3.5); Glucose 207 mg/dL (83-110); Potassium 3.3 mmol/L (3.5-5.1); Protein, Total 6.2 g/dL (5.8-8.1); Sodium 136 mmol/L (136-145)
[2023-06-18 22:19] LABS: Bacteria/HPF None Seen HPF (None Seen); Bilirubin Negative (Negative); Blood, Urine Negative (Negative); CAUTI Indications for Culture Pelvic or flank pain; Clarity Clear (Clear); Glucose, Urine (Dipstick) 200 mg/dL (Negative); Ketone, Urine Negative (Negative); Leukocyte Negative Leu/uL (Negative); Nitrite Negative (Negative); Protein, Urine (Dipstick) 30 mg/dL (Neg-Trace); RBC/HPF None Seen HPF (0-3); Specific Gravity, Urine 1.005 (1.002-1.036); Squamous Epithelial 0-3 HPF (0-3); Urobilinogen Normal mg/dL (Less than 2); WBC/HPF 0-3 HPF (0-3)
[2023-06-18 22:21] LABS: Urine Culture Reflex No No
[2023-06-18] MEDS ORDERED: Potassium Bicarbonate/Cit Ac 20 MEQ TAB ONE (22:43)
== END 2023-06-18 23:17 | disposition home or self-care (01) ==
LOC: ERS 19:35
DX: M79.605 Pain in left leg (principal); E11.22 Type 2 diabetes mellitus with diabetic chronic kidney disease; N18.4 Chronic kidney disease, stage 4 (severe); I12.9 Hypertensive chronic kidney disease with stage 1 through stage 4 chronic kidney disease, or unspecified chronic kidney disease; Z79.4 Long term (current) use of insulin; Z79.01 Long term (current) use of anticoagulants
CPT/HCPCS: 36415; 80053; 81001; 85025; 93005; 94760

== ENCOUNTER 2023-11-30 11:11 | Outpatient (CLI) | payer MEDICARE, BC | END 2023-11-30 11:12 | disposition home or self-care (01) | LOC: BICMAMMO 11:11 | PROVIDERS: ATTEND Nurse Practitioner Family | DX: Z13.820 Encounter for screening for osteoporosis (principal); M81.0 Age-related osteoporosis without current pathological fracture; Z78.0 Asymptomatic menopausal state | CPT/HCPCS: 77080 ==

== ENCOUNTER 2024-06-02 09:35 | Inpatient (IN) | payer MEDICARE, BC ==
[2024-06-02] MEDS ORDERED: Acetaminophen 325 MG TAB ONE (10:24)
[2024-06-02] MEDS ORDERED: Boostrix 0.5 ML (Tdap) VIAL (>/=7 yrs of age) ONE (10:25)
[2024-06-02 11:06] LABS: #Basophils 0.07 10x3/uL (0.0-0.2); %Basophils 0.6 % (0.0-1.0); %Eosinophils 1.3 % (0.0-10.0); %Lymphocytes 23.5 % (21.0-51.0); %Monocytes 9.5 % (0.0-10.0); %Neutrophils 64.4 % (42.0-75.0); Hematocrit 35.3 % (36.0-47.0); Hemoglobin 11.5 g/dL (12.0-16.0); Mean Corpuscular HGB CONC 32.6 g/dL (32.0-36.0); Mean Corpuscular Hemoglobin 32.1 pg (27.0-31.0); Mean Corpuscular Volume 98.6 fL (78.0-98.0); Mean Platelet Volume 10.3 fL (7.4-10.4); Platelet Count 127 10x3/uL (130-400); RBC Distribution Width 15.4 % (11.5-14.5); Red Blood Cell (RBC) Count 3.58 mill/uL (4.20-5.40)
[2024-06-02 11:19] LABS: INR-International Normal Ratio 1.1; Prothrombin Time 14.1 sec (12.0-14.7)
[2024-06-02 11:46] LABS: ALT (SGPT) 13 U/L (8-55); AST (SGOT) 20 U/L (5-34); Albumin 3.5 g/dL (3.4-4.8); Alkaline Phosphatase 60 U/L (40-110); Anion Gap 15 mmol/L (10-20); BUN (Urea Nitrogen) 55 mg/dL (9.8-20.1); Bilirubin, Total 0.6 mg/dL (0.2-1.2); CK (CPK) 123 U/L (29-168); Calc. Creatinine Clearance 0 mL/min (70-130); Calcium 12.1 mg/dL (7.8-10.44); Carbon Dioxide 26 mmol/L (23-31); Chloride 102 mmol/L (98-107); Estimated GFR 8; Globulin 3.2 g/dL (2.4-3.5); Glucose 148 mg/dL (83-110); Protein, Total 6.7 g/dL (5.8-8.1); Sodium 139 mmol/L (136-145)
[2024-06-02 11:53] LABS: Troponin I 0.103 ng/mL (< 0.028)
[2024-06-02] MEDS ORDERED: Ondansetron PF 4 MG/2 ML Vial IVP PRN (13:21)
[2024-06-02] MEDS ORDERED: Glucagon 1 MG/ML KIT IM PRN ×2 (13:21→19:48)
[2024-06-02] MEDS ORDERED: Dextrose 5% in Water 1,000 ML IV PRN ×2 (13:21→19:48)
[2024-06-02] MEDS ORDERED: Ondansetron ODT 4 MG TAB PO PRN (13:21)
[2024-06-02] MEDS ORDERED: Dextrose 50% Abboject 50 ML SYRINGE SLOW IVP PRN ×2 (13:21→19:48)
[2024-06-02] MEDS ORDERED: Acetaminophen/Codeine 30-300mg Tablet ONE (15:17)
[2024-06-02] MEDS: Acetaminophen/Codeine 30-300mg Tablet PO PRN (15:32)
[2024-06-02 17:19] LABS: Troponin I 0.117 ng/mL (< 0.028)
[2024-06-02] MEDS ORDERED: Insulin Lispro 100 UNIT/ML 10 ML VIAL SC PRN ×2 (19:48)
[2024-06-02] MEDS: Lactated Ringer's 500 ML IV SCH ×2 (21:03→21:12)
[2024-06-02] MEDS: Amlodipine 5 MG TAB PO SCH (21:12)
[2024-06-02 22:27] VITALS: BMI 19.2
[2024-06-03 04:54] LABS: Anion Gap 14 mmol/L (10-20); BUN (Urea Nitrogen) 55 mg/dL (9.8-20.1); Calc. Creatinine Clearance 7 mL/min (70-130); Calcium 10.9 mg/dL (7.8-10.44); Carbon Dioxide 23 mmol/L (23-31); Chloride 103 mmol/L (98-107); Estimated GFR 9; Glucose 100 mg/dL (83-110); Potassium 3.7 mmol/L (3.5-5.1); Sodium 136 mmol/L (136-145)
[2024-06-03 07:27] LABS: #Basophils 0.06 10x3/uL (0.0-0.2); %Basophils 0.5 % (0.0-1.0); %Eosinophils 1.7 % (0.0-10.0); %Lymphocytes 21.3 % (21.0-51.0); %Monocytes 9.3 % (0.0-10.0); %Neutrophils 66.7 % (42.0-75.0); Hematocrit 33.4 % (36.0-47.0); Hemoglobin 10.6 g/dL (12.0-16.0); Mean Corpuscular HGB CONC 31.7 g/dL (32.0-36.0); Mean Corpuscular Volume 100.9 fL (78.0-98.0); Mean Platelet Volume 10.2 fL (7.4-10.4); Platelet Count 107 10x3/uL (130-400); RBC Distribution Width 15.3 % (11.5-14.5); Red Blood Cell (RBC) Count 3.31 mill/uL (4.20-5.40)
[2024-06-03] MEDS: hydrALAZINE 20 MG/ML VIAL SLOW IVP PRN (07:59)
[2024-06-03] MEDS: Acetaminophen 650 MG Suppository PR PRN (12:38)
[2024-06-03] MEDS: Lactated Ringer's 500 ML IV SCH (13:52)
[2024-06-03 16:12] LABS: Bilirubin Negative (Negative); Blood, Urine Trace (Negative); CAUTI Indications for Culture Alt mental st,lethar; Clarity Clear (Clear); Glucose, Urine (Dipstick) Normal (Negative); Ketone, Urine Negative (Negative); Leukocyte Negative Leu/uL (Negative); Nitrite Negative (Negative); Protein, Urine (Dipstick) 20 mg/dL (Neg-Trace); Specific Gravity, Urine 1.006 (1.002-1.036); Squamous Epithelial 0-3 HPF (0-3); Urobilinogen Normal mg/dL (Less than 2); WBC/HPF 0-3 HPF (0-3)
[2024-06-03 16:15] LABS: Bacteria/HPF 1+ HPF (None Seen); Urine Culture Reflex No No
[2024-06-03] MEDS: Docusate 100 MG CAP PO PRN (17:51)
[2024-06-03] MEDS: Polyethylene Glycol 3350 17 GM Packet PO PRN (17:51)
[2024-06-04] MEDS ORDERED: Lidocaine 4% Cream 5 GM TUBE w/ Tegaderm TOP SCH (03:00)
[2024-06-04] MEDS: Lidocaine/Transparent Dressing 1 EACH KIT TP SCH (03:15)
[2024-06-04 05:23] LABS: #Basophils 0.06 10x3/uL (0.0-0.2); %Basophils 0.6 % (0.0-1.0); %Lymphocytes 14.8 % (21.0-51.0); %Monocytes 10.7 % (0.0-10.0); %Neutrophils 71.4 % (42.0-75.0); Hematocrit 29.5 % (36.0-47.0); Hemoglobin 9.6 g/dL (12.0-16.0); Mean Corpuscular HGB CONC 32.5 g/dL (32.0-36.0); Mean Corpuscular Hemoglobin 32.4 pg (27.0-31.0); Mean Corpuscular Volume 99.7 fL (78.0-98.0); Mean Platelet Volume 9.4 fL (7.4-10.4); Platelet Count 119 10x3/uL (130-400); RBC Distribution Width 15.9 % (11.5-14.5); Red Blood Cell (RBC) Count 2.96 mill/uL (4.20-5.40)
[2024-06-04 05:57] LABS: Anion Gap 15 mmol/L (10-20); BUN (Urea Nitrogen) 53 mg/dL (9.8-20.1); Calc. Creatinine Clearance 7 mL/min (70-130); Calcium 9.8 mg/dL (7.8-10.44); Carbon Dioxide 23 mmol/L (23-31); Chloride 105 mmol/L (98-107); Estimated GFR 10; Glucose 129 mg/dL (83-110); Potassium 3.5 mmol/L (3.5-5.1); Sodium 139 mmol/L (136-145)
[2024-06-04] MEDS: Metamucil PACK PO SCH (09:27)
[2024-06-04] MEDS: EPOETIN ALFA-EPBX (ESRD) 10,000 UNITS/ML VIAL SC SCH (10:38)
[2024-06-04] MEDS: Sodium Chloride 0.45% 1,000 ML IV SCH (12:49)
[2024-06-04] MEDS: Acetaminophen 325 MG TAB PO PRN (17:20)
[2024-06-04] MEDS: Ferrous Sulfate 325 MG TAB PO SCH (17:20)
[2024-06-05 05:28] LABS: Anion Gap 16 mmol/L (10-20); BUN (Urea Nitrogen) 50 mg/dL (9.8-20.1); Calc. Creatinine Clearance 8 mL/min (70-130); Calcium 9.2 mg/dL (7.8-10.44); Carbon Dioxide 19 mmol/L (23-31); Chloride 105 mmol/L (98-107); Estimated GFR 12; Glucose 131 mg/dL (83-110); Potassium 3.7 mmol/L (3.5-5.1); Sodium 136 mmol/L (136-145)
[2024-06-05 05:29] LABS: #Basophils 0.05 10x3/uL (0.0-0.2); %Basophils 0.7 % (0.0-1.0); %Eosinophils 2.2 % (0.0-10.0); %Lymphocytes 16.4 % (21.0-51.0); %Monocytes 10.4 % (0.0-10.0); %Neutrophils 69.7 % (42.0-75.0); Hematocrit 30.1 % (36.0-47.0); Hemoglobin 9.6 g/dL (12.0-16.0); Mean Corpuscular HGB CONC 31.9 g/dL (32.0-36.0); Mean Corpuscular Hemoglobin 32.1 pg (27.0-31.0); Mean Corpuscular Volume 100.7 fL (78.0-98.0); Mean Platelet Volume 10.6 fL (7.4-10.4); Platelet Count 105 10x3/uL (130-400); RBC Distribution Width 15.9 % (11.5-14.5); Red Blood Cell (RBC) Count 2.99 mill/uL (4.20-5.40)
[2024-06-05] MEDS: Albumin 25% 25 GM (100 mL) BOT IVPB SCH (09:24)
[2024-06-06 06:27] LABS: #Basophils 0.04 10x3/uL (0.0-0.2); %Basophils 0.6 % (0.0-1.0); %Eosinophils 3.8 % (0.0-10.0); %Lymphocytes 23.8 % (21.0-51.0); %Monocytes 13.6 % (0.0-10.0); %Neutrophils 57.6 % (42.0-75.0); Hematocrit 28.6 % (36.0-47.0); Hemoglobin 9.2 g/dL (12.0-16.0); Mean Corpuscular HGB CONC 32.2 g/dL (32.0-36.0); Mean Corpuscular Hemoglobin 32.4 pg (27.0-31.0); Mean Corpuscular Volume 100.7 fL (78.0-98.0); Mean Platelet Volume 10.5 fL (7.4-10.4); Platelet Count 125 10x3/uL (130-400); RBC Distribution Width 15.9 % (11.5-14.5); Red Blood Cell (RBC) Count 2.84 mill/uL (4.20-5.40)
[2024-06-06 06:52] LABS: Anion Gap 13 mmol/L (10-20); BUN (Urea Nitrogen) 44 mg/dL (9.8-20.1); Calc. Creatinine Clearance 8 mL/min (70-130); Calcium 8.8 mg/dL (7.8-10.44); Carbon Dioxide 20 mmol/L (23-31); Chloride 108 mmol/L (98-107); Estimated GFR 11; Glucose 110 mg/dL (83-110); Potassium 3.3 mmol/L (3.5-5.1); Sodium 138 mmol/L (136-145)
[2024-06-06 06:57] LABS: Troponin I 0.059 ng/mL (< 0.028)
[2024-06-06 07:24] LABS: Thyroid Stimulating Hormone 3.2707 uIU/mL (0.35-4.94); Vitamin B12 Greater than 2000 pg/mL (211-911)
[2024-06-06] MEDS: Potassium Chloride 20 MEQ TAB PO SCH ×2 (09:09→09:10)
[2024-06-06 09:46] LABS: Magnesium 2.2 mg/dL (1.6-2.6)
[2024-06-06] MEDS: Sodium Chloride 0.45% 1,000 ML IV SCH (11:42)
[2024-06-06 14:00] VITALS: BMI 18.6
[2024-06-07 04:50] LABS: #Basophils 0.05 10x3/uL (0.0-0.2); %Basophils 0.6 % (0.0-1.0); %Eosinophils 2.7 % (0.0-10.0); %Lymphocytes 25.2 % (21.0-51.0); %Monocytes 13.7 % (0.0-10.0); %Neutrophils 57.1 % (42.0-75.0); Hematocrit 32.1 % (36.0-47.0); Hemoglobin 10.1 g/dL (12.0-16.0); Mean Corpuscular HGB CONC 31.5 g/dL (32.0-36.0); Mean Corpuscular Hemoglobin 32.3 pg (27.0-31.0); Mean Corpuscular Volume 102.6 fL (78.0-98.0); Mean Platelet Volume 9.7 fL (7.4-10.4); Platelet Count 124 10x3/uL (130-400); RBC Distribution Width 15.9 % (11.5-14.5); Red Blood Cell (RBC) Count 3.13 mill/uL (4.20-5.40)
[2024-06-07 05:04] LABS: Anion Gap 13 mmol/L (10-20); BUN (Urea Nitrogen) 43 mg/dL (9.8-20.1); Calc. Creatinine Clearance 9 mL/min (70-130); Calcium 8.4 mg/dL (7.8-10.44); Carbon Dioxide 19 mmol/L (23-31); Chloride 109 mmol/L (98-107); Estimated GFR 13; Glucose 128 mg/dL (83-110); Sodium 137 mmol/L (136-145)
[2024-06-07] MEDS: Apixaban 2.5 MG TAB PO SCH (09:18)
[2024-06-07] MEDS: Heparin 5,000 UNITS/ML VIAL SC SCH (19:50)
[2024-06-08 04:55] LABS: #Basophils 0.06 10x3/uL (0.0-0.2); %Basophils 0.7 % (0.0-1.0); %Eosinophils 2.8 % (0.0-10.0); %Lymphocytes 21.3 % (21.0-51.0); %Monocytes 12.4 % (0.0-10.0); %Neutrophils 62.2 % (42.0-75.0); Hematocrit 30.7 % (36.0-47.0); Hemoglobin 9.8 g/dL (12.0-16.0); Mean Corpuscular HGB CONC 31.9 g/dL (32.0-36.0); Mean Corpuscular Hemoglobin 32.7 pg (27.0-31.0); Mean Corpuscular Volume 102.3 fL (78.0-98.0); Mean Platelet Volume 10.4 fL (7.4-10.4); Platelet Count 131 10x3/uL (130-400); RBC Distribution Width 16.3 % (11.5-14.5)
[2024-06-08 04:59] LABS: Anion Gap 14 mmol/L (10-20); BUN (Urea Nitrogen) 42 mg/dL (9.8-20.1); Calc. Creatinine Clearance 10 mL/min (70-130); Calcium 8.1 mg/dL (7.8-10.44); Carbon Dioxide 18 mmol/L (23-31); Chloride 111 mmol/L (98-107); Estimated GFR 13; Glucose 123 mg/dL (83-110); Potassium 4.2 mmol/L (3.5-5.1); Sodium 139 mmol/L (136-145)
[2024-06-08] MEDS: Sodium Bicarbonate Tab 325 MG TAB PO SCH (09:54)
[2024-06-08 15:46] VITALS: BP 164/77; TEMP 98.5
[2024-06-11] MEDS ORDERED: EPOETIN ALFA-EPBX (ESRD) 10,000 UNITS/ML VIAL SC SCH (12:00)
== END 2024-06-08 18:10 | DRG 552 ==
LOC: ERS 09:35 → ERHOLD 13:32 → 2NO 19:45
PROVIDERS: ADMIT Surgery; ATTEND Surgery
DX: S12.400A Unspecified displaced fracture of fifth cervical vertebra, initial encounter for closed fracture (principal); I12.0 Hypertensive chronic kidney disease with stage 5 chronic kidney disease or end stage renal disease; N17.9 Acute kidney failure, unspecified; I48.19 Other persistent atrial fibrillation; E87.20 Acidosis, unspecified; W18.30XA Fall on same level, unspecified, initial encounter; E11.22 Type 2 diabetes mellitus with diabetic chronic kidney disease; Z98.890 Other specified postprocedural states; Z91.041 Radiographic dye allergy status; Z88.2 Allergy status to sulfonamides; Z91.048 Other nonmedicinal substance allergy status; Z88.7 Allergy status to serum and vaccine; Z88.8 Allergy status to other drugs, medicaments and biological substances; Z79.01 Long term (current) use of anticoagulants; Z79.899 Other long term (current) drug therapy; E83.52 Hypercalcemia; E87.6 Hypokalemia
CPT/HCPCS: 36415; 36416; 70450; 71045; 71250; 72040; 72125; 72128; 72141; 80048; 80053; 81001; 82040; 82310; 82550; 82607; 83735; 84443; 84484; 85025; 85610; 90715; 93005; 93880; G0390; J0360; J1644; J7120; P9047; Q5105

== ENCOUNTER 2024-07-25 15:20 | Outpatient (CLI) | payer MEDICARE, BC | END 2024-07-25 15:21 | disposition home or self-care (01) | LOC: BICRAD 15:20 | PROVIDERS: ATTEND Neurological Surgery | DX: S12.400D Unspecified displaced fracture of fifth cervical vertebra, subsequent encounter for fracture with routine healing (principal) | CPT/HCPCS: 72040 ==

== ENCOUNTER 2024-08-02 10:39 | Outpatient (CLI) | payer MEDICARE, BC | END 2024-08-02 10:40 | disposition home or self-care (01) | LOC: BICRAD 10:39 | PROVIDERS: ATTEND Neurological Surgery | DX: S12.9XXA Fracture of neck, unspecified, initial encounter (principal); M47.812 Spondylosis without myelopathy or radiculopathy, cervical region | CPT/HCPCS: 72050 ==